=== PATIENT | male | born 1960 | race Caucasian/White ===

== ENCOUNTER 2020-02-23 13:36 | Inpatient (IN) | payer OTHER, SELFPAY ==
--- NOTE | ~2020-02-23 | XR_ITS ---
EXAMINATION: XR chest 1V portable DATE: 02/25/2020 12:18 INDICATION: Tachypnea. TECHNIQUE: A single frontal view of the chest was obtained. COMPARISON: CT abdomen and pelvis 06/06/2010 FINDINGS: There is mild atelectasis at left lung base. There is a prominent left paracardial fat pad. No pleural effusion or pneumothorax. The heart size is normal. IMPRESSION: 1. Mild atelectasis at left lung base. Reviewed, dictated and finalized at location A.
--- NOTE | ~2020-02-23 | US_ITS ---
EXAMINATION: US renal BI DATE: 02/25/2020 11:48 INDICATION: Acute kidney injury. TECHNIQUE: Multiple ultrasound grayscale images of the kidneys were obtained. COMPARISON: CT abdomen and pelvis 06/06/2010 FINDINGS: The right kidney measures 11.8 x 6.7 x 7.6 cm. The left kidney measures 13.2 x 6.9 x 8.8 cm. The kidn eys demonstrate normal parenchymal echogenicity. There is no hydronephrosis. The bladder is decompres sed by a [place] catheter. IMPRESSION: 1. Normal kidneys. No hydronephrosis. Reviewed, dictated and finalized at location A.
--- NOTE | ~2020-02-23 | CT_ITS ---
EXAMINATION: CT brain wo con INDICATION: Acute encephalopathy, confusion COMPARISON: None TECHNIQUE: Standard unenhanced head CT. The dose-length product (DLP) was 681.00 mGy-cm. The mA was a djusted according to patient size. Iterative reconstruction technique was employed. FINDINGS: Motion artifact slightly limits the examination. There is no intracranial hemorrhage, acute infarction, or abnormal mass lesion. The ventricles are normal. There is no abnormal mass effect or midline shift. The chavez-white matter differentiation is normal. The basal cisterns are patent. The or bits are normal. The paranasal sinuses, mastoids and calvarium are normal. IMPRESSION: 1. No acute intracranial abnormality. Reviewed, dictated and finalized at location A.
[2020-02-23 13:39] VITALS: BP 159/124; PULSE 99; RESP 22; TEMP 36.4; O2SAT 99
[2020-02-23 13:56] LABS: Glucose Point of Care > 500 (65-105)
--- NOTE | 2020-02-23 14:04 | PC.NURSE ---
patient uncooperative with assessment and attempts to obtain finger stick and past medical history. patient refused to allow any nursing interventions or provide information until he got a drink of water and was allowed to take a dump
[2020-02-23 14:06] VITALS: BP 142/78; PULSE 78; RESP 18; O2SAT 99
[2020-02-23] MEDS: SODIUM CHLORIDE 0.9% IV 1,000 ML 999 ML IV CONT ×2 (14:16→19:35)
[2020-02-23] MEDS: INSULIN HUMAN REGULAR (*BKC) 100 UNITS/ML 11 UNITS IV PUSH ×2 (14:17→16:32)
[2020-02-23 14:23] LABS: Basophils Absolute Auto 0.1 K/mm3 (0.0-0.1); Basophils Percent Auto 0.4 % (0.2-1.2); Hemoglobin 15.2 g/dL (14.0-18.0); Immature Granulocyte Absolute 0.49 K/mm3 (0.00-0.031); Immature Granulocyte Percent A 2.1 % (0-0.5); Lymphocytes Absolute Auto 1.25 K/mm3 (0.9-3.2); Lymphocytes Percent Auto 5.2 % (18.3-44.2); Mean Corpuscular HGB Conc 32.3 g/dl (32-36); Mean Corpuscular Hemoglobin 31.1 pg (26-34); Mean Corpuscular Volume 96.3 fl (80-100); Mean Platelet Volume 10.9 fl (7.4-10.4); Monocytes Absolute Auto 1.8 K/mm3 (0.1-0.6); Monocytes Percent Auto 7.6 % (2.6-8.5); Neutrophils Absolute Auto 20.2 K/mm3 (1.3-6.7); Neutrophils Percent Auto 84.7 % (45.5-73.1); Platelet Count Result 412 k/mm3 (150-375); Red Blood Count 4.88 M/mm3 (4.6-6.20); Red Cell Distribution Width 12.5 % (11.5-14.5); White Blood Count 23.9 K/mm3 (4.5-10.0)
[2020-02-23 14:39] LABS: Alanine Aminotransferase 22 U/L (4-50); Albumin Level 4.2 g/dL (3.5-5.1); Alkaline Phosphatase 118 U/L (38-126); Aspartate Amino Transferase 22 U/L (17-59); Bilirubin,Total 0.6 mg/dL (0.2-1.3); Blood Urea Nitrogen 53 mg/dL (9-20); Calcium 9.2 mg/dL (8.4-10.2); Carbon Dioxide < 5 mmol/L (22-30); Chloride 88 mmol/L (98-107); Estimated CRCL calculation 43 ml/min; Estimated Glomerular Filt Rate 34; Magnesium 2.6 mg/dL (1.6-2.3); Phosphorus 7.4 mg/dL (2.5-4.5); Potassium 5.4 mmol/L (3.4-5.0); Sodium 125 mmol/L (137-145)
[2020-02-23 14:41] LABS: Glucose Point of Care > 500 (65-105)
[2020-02-23 14:49] LABS: Glucose 863 mg/dL (75-110)
--- NOTE | 2020-02-23 15:02 | ECG_ITS ---
Measurements Intervals [place] Rate: 96 P: 87 [place]: 133 QRS: 70 QRSD: 90 T: 69 QT: 368 QTc: 467 Interpretive Statements SINUS RHYTHM ATRIAL PREMATURE COMPLEXES BASELINE WANDER- I, II, AVR, AVL, AVF, V1, V3-V6 BORDERLINE ECG Electronically Signed On 02-23-2020 18:11:09 CDT by Jackson Marcelo D.O.
[2020-02-23 15:24] LABS: Glucose Point of Care > 500 (65-105)
[2020-02-23 15:47] LABS: Lactic Acid 1.6 mmol/L (0.7-2.1)
[2020-02-23] MEDS: MORPHINE SULFATE 4 MG/ML INJ IV PUSH (15:49)
[2020-02-23 15:53] LABS: Hemoglobin A1C > 14.0 % (<5.7)
[2020-02-23 15:53] LABS: Add Urine Microscopic? YES; Appearance Urine Clear (Clear); Bilirubin Urine Negative (Negative); Blood Urine 2+ (Negative); Color Urine Straw (Yellow); Glucose Urine UA 3+ mg/dL (Negative); Ketones Urine 2+ mg/dL (Negative); Leukocyte Esterase Ur Negative LEU/UL (Negative); Mucus Urine Rare /lpf; Nitrate Urine Negative (Negative); Protein Urine 1+ mg/dL (Negative); RBC Urine 0-2 /hpf (0-2); Specific Grav Ur 1.024 (1.001-1.035); Urobilinogen Urine Negative mg/dL (<2.0); WBC Urine 0-3 /hpf
[2020-02-23 16:00] LABS: NT Pro B Type Natriuretic Pept 390 PG/ML (5-100); Troponin I 0.015 ng/mL (0.000-0.034)
--- NOTE | 2020-02-23 16:00 | ED.RECABL ---
HPI - Recheck/Abnormal Lab/Rx General Chief Complaint: Recheck/Abnormal Lab/Rx Stated Complaint: DKA Time Seen by Provider: 02/23/20 14:06 History of Present Illness HPI narrative: Patient presents with his for 4 weeks of extreme thirst and urination, and now vomiting. He was previously not diabetic. He has had a sore on his left buttock, that drained and is now scabbed. He has not had fever cough chills or sweats. He is having dry heaves and his is answering most of the questions. Related Data Allergies Allergy/AdvReac Type Severity Reaction Status Date / Time codeine Allergy Unknown Verified 07/18/17 12:59 Review of Systems Review of Systems: Narrative: CONSTITUTIONAL: Denies fever, chills, or sweats. EYES: Denies visual changes, redness, or discharge. ENT: Denies rhinorrhea, congestion, sore throat, or otalgia. CARDIOVASCULAR: Denies chest pain, palpitations, or edema. RESPIRATORY: Denies cough or dyspnea. GASTROINTESTINAL: Denies abdominal pain, nausea, vomiting, or diarrhea. Excess thirst GENITOURINARY: Denies dysuria or hematuria. Excess urination SKIN: Denies rash or itching. Abscess on the buttock MUSCULOSKELETAL: Denies back pain, joint pain, or myalgia. NEUROLOGIC: Denies headache, numbness, or weakness. PSYCHIATRIC: Denies anxiety or depression. All systems reviewed & are unremarkable except as noted in HPI and below PMFSH Past Medical History Medical History (Updated 02/23/20 @ 16:17 by Dorothea Quesada MD) Acute dehydration Acute hyponatremia Acute renal insufficiency Cellulitis and abscess of buttock DKA (diabetic ketoacidoses) Hyperkalemia Leukocytosis Newly diagnosed diabetes Thrombocytopenia Family History Family History Grandparent Family history of condition Mother Family history of malignant neoplasm of breast in first degree relative Father Family history of lung disease Family history of Alzheimer's disease Sibling Family history of rheumatoid arthritis Social History Social History Smoking status: Never smoker Alcohol intake: never Exam Narrative: Exam Narrative: GENERAL: Overweight sitting at the end of the bed with dry heaves. Unkempt. HEAD: Normocephalic, atraumatic. EYES: PERRLA and EOMI. ENT: Nares clear, no rhinorrhea or epistaxis. Mucous membranes moist. NECK: Supple. CHEST: Clear to auscultation. No respiratory distress. HEART: Regular rate and rhythm. No murmur heard. Normal peripheral pulses. ABDOMEN: Soft, nontender, nondistended, normal active bowel sounds. EXTREMITIES: Normal range of motion. No edema. SKIN: Warm, dry, no rash. Scab on the left buttock with surrounding erythema, not fluctuant. NEURO: No focal deficits. Alert and oriented x3. PSYCH: Flat affect few words. Course Consultations Consultation #1: Call the ICU and the hospitalist for admission for DKA. Dr. Goyal excepts to the ICU. And Naya accepts for Dr. Fitzgerald. Date: 02/23/20 Time: 16:04 Vital Signs Vital signs: Vital Signs Temperature 97.6 F 02/23/20 13:39 Pulse Rate 99 02/23/20 13:39 Respiratory Rate 22 H 02/23/20 13:39 Blood Pressure 159/124 H 02/23/20 13:39 Pulse Oximetry 99 02/23/20 13:39 Temperature 97.6 F 02/23/20 13:39 Pulse Rate 99 02/23/20 13:39 Respiratory Rate 22 H 02/23/20 13:39 Blood Pressure 159/124 H 02/23/20 13:39 Pulse Oximetry 99 02/23/20 13:39 MDM - Recheck/Abnormal Lab/Rx MDM Narrative Medical decision making narrative: Patient was thought to be in DKA when he arrived, and the labs support this. He was started on IV fluids and insulin. When his told us about the sore on his buttock, antibiotics were added. Medical Records Attestation: I reviewed the patient's medical records. Lab Data Attestation: I reviewed the patient's lab results. Result diagrams: 02/23/20 14:15 02/23/20 14:16
[2020-02-23 16:25] LABS: Glucose Point of Care > 500 (65-105)
[2020-02-23] MEDS: INSULIN HUMAN REGULAR (*BKC) 100 UNITS in SODIUM CHLORIDE 0.9% IV 99 ML 16.1 UNITS IV CONT (16:30)
--- NOTE | 2020-02-23 16:59 | PC.NURSE ---
patient continues to be uncooperative with mask usage and staying in bed. refuses straight cath to obtain ua and refuses to use urinial
[2020-02-23 17:29] LABS: Glucose Point of Care > 500 (65-105)
--- NOTE | 2020-02-23 18:21 | PC.NURSE ---
This patient, Osito Garcia, was admitted to Intensive Care Unit-12. Patient/family oriented to hospital policies and general routines including ID bracelet, bed and alarms, visiting hours, pain management, procedures, bathroom and other care routines, personal items, smoking policy, room service/diet, and visiting hours. Valuables list has been completed. Information on how to activate the Rapid Response Team has been discussed. Patient/Family are encouraged to report perceived risks to care and to ask questions if they do not understand what they are told or what they should do.
[2020-02-23 18:27] VITALS: BMI 36.1
[2020-02-23 18:35] LABS: Glucose 628 mg/dL (75-110)
[2020-02-23 19:09] LABS: Troponin I 0.018 ng/mL (0.000-0.034)
--- NOTE | 2020-02-23 19:28 | WPDPROCEDUR ---
Procedures Central Line Placement Right Femoral: Central Line Date: 02/23/20 Central Line Time: 19:10 Discussed w/ the patient/family/POA,the placement of a central venous catheter, including its clinical necessity/indication & associated potential risks, benifits and alternatives.: Yes The patient/family/POA understand(s) and acknowledge(s) the need to proceed with central venous catheter insertion as an important element of the patient's clinical management.: Yes Consent: Per patient Time Out Performed: Yes Patient Position: supine Patient placed on monitor/pulse ox: Yes Provider Prep: mask, sterile gown, sterile gloves, Max. sterile barrier precautions, cap and hand hygiene Central line prep: Povidone-Iodine 1% Local anesthesia used: lidocaine 1% Ultrasound used for placement: Yes Central line lumen inserted: triple British: 7 Length (cm): 16 Depth of Insertion (cm): 15 Post procedure: sutured in place, good blood return (All 3 port), all ports aspirated, flushed, capped, tegaderm and antimicrobial disc Post procedure x-ray: other (No x-ray needed as it is a femoral line) Complications: none
[2020-02-23] MEDS: SODIUM CHLORIDE 0.9% IV 1,000 ML 150 ML IV CONT (19:30)
--- NOTE | 2020-02-23 19:33 | PM.IMHP ---
H&P: HPI History of Present Illness Chief complaint: DKA Narrative: Osito Garcia is a 59 year old male has no previous history of having any diabetes. The patient stated he has been sick for about the last month. The patient has an area on his left inner thigh that is necrotic and the patient was unsure how long that had been there. He said he wishes to short period of time. Was not able to tell me if he took any medicine for that abscess to the left thigh. Patient also had a sore on his left buttocks that drained and is now scabbed. But I did not see that today. He denies fever or chills. He has had increased urination and increased thirst for at least the last month. White blood count 23.9. Sodium 125. BUN 53 creatinine 2.0. Glucose 863 and then 628. A1c is greater than 14. Troponins are negative. Anion gap of 32. Patient was started on a DKA protocol. Date of service 02/23/2020 Review of Systems Review of Systems: All systems reviewed & are unremarkable except as noted in HPI and below Constitutional: Constitutional: Reports as per HPI and Reports no additional constitutional complaints Eyes: Eyes: Reports as per HPI and Reports no additional eye complaints ENT: Reports system reviewed and no additional complaints, except as documented and Reports Normal hearing present Cardiovascular: Cardiovascular: Reports no additional cardiovascular complaints Respiratory: Respiratory: Reports no additional respiratory complaints and Reports no additional respiratory complaints Gastrointestinal: Gastrointestinal: Reports as per HPI and Reports no additional gastrointestinal complaints Musculoskeletal: Musculoskeletal: Reports no additional musculoskeletal complaints Integumentary/Breasts: Skin/Breast: Reports system reviewed and no additional complaints, except as docu and Reports as per HPI Neurologic: Reports system reviewed and no additional complaints, except as documented, Reports as per HPI and Reports Normal hearing present Psychiatric: Psychiatric: Reports no additional psychiatric complaints and Reports as per HPI Endocrine: Endocrine: Reports no additional endocrine complaints Hematologic/Lymphatic: Hematologic/Lymphatic: Reports no additional hematologic/lymphatic complaints Allergic/Immunologic: Allergic/Immunologic: Reports no additional allergic/immunologic complaints [facility] Past Medical History Medical History (Updated 02/23/20 @ 19:42 by Naya Garcia NP) Acute dehydration Acute hyponatremia Acute renal insufficiency Cellulitis and abscess of buttock Left inner thigh DKA (diabetic ketoacidoses) Hernia Not sure if repaired or not. Hyperkalemia Leukocytosis Newly diagnosed diabetes Thrombocytopenia Surgical History Surgical History (Updated 02/23/20 @ 19:43 by Naya Garcia NP) Surgical history unknown Family History Family History Grandparent Family history of condition Mother Family history of malignant neoplasm of breast in first degree relative Father Family history of lung disease Family history of Alzheimer's disease Sibling Family history of rheumatoid arthritis Social History Social History (Updated 02/23/20 @ 19:44 by Naya Garcia NP) Social History: Patient stated that he works at [employer] usually but is close were [employer]. 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 He has 2 children. His Scarlett is his durable power finance attorney for healthcare. The patient states that he is a full code. He states that he smokes marijuana on a daily basis. Denies any alcohol or tobacco use. No street drugs, Just marijuana. Smoking status: Never smoker Alcohol intake: former Substance use: current Substance use type: marijuana Living arrangements: with family Occupation/Education: occupation Gender identity (if verbalized by the patient): Male Spiritual care concerns: No Meds Home Medication
[2020-02-23 19:50] LABS: Blood Urea Nitrogen 50 mg/dL (9-20); Calcium 9.9 mg/dL (8.4-10.2); Carbon Dioxide < 5 mmol/L (22-30); Chloride 96 mmol/L (98-107); Estimated CRCL calculation 51 ml/min; Estimated Glomerular Filt Rate 41; Potassium 5.1 mmol/L (3.4-5.0); Sodium 131 mmol/L (137-145)
[2020-02-23 19:57] LABS: Glucose 717 mg/dL (75-110)
[2020-02-23 20:00] VITALS: BP 144/97; PULSE 97; RESP 22; TEMP 36.4; O2SAT 98
[2020-02-23 21:04] LABS: Glucose Point of Care > 500 (65-105)
[2020-02-23] MEDS: LORAZEPAM INJ 2 MG/ML VIAL 0.5 MG IV PUSH (21:21)
[2020-02-23 21:32] LABS: Glucose 422 mg/dL (75-110)
[2020-02-23 22:00] VITALS: BP 100/67; PULSE 105; RESP 22; O2SAT 98
[2020-02-23] MEDS: HYOSCYAMINE SULFATE 0.125 MG TABLET PO (22:45)
[2020-02-23] MEDS: HALOPERIDOL LACTATE 5 MG/ML VIAL IM (23:00)
[2020-02-23] MEDS: LORAZEPAM INJ 2 MG/ML VIAL IM (23:52)
[2020-02-23] MEDS: OLANZapine 10 MG INJ VIAL IM (23:53)
[2020-02-24] VITALS (12 sets, daily range): BP systolic 82–144; BP diastolic 46–106; PULSE 63–112; RESP 16–30; TEMP 36.4–37.2; O2SAT 93–100
--- NOTE | 2020-02-24 01:00 | WPDPROCEDUR ---
Procedures Central Line Placement Right Femoral: Central Line Date: 02/24/20 Central Line Time: 01:01 The patient/family/POA understand(s) and acknowledge(s) the need to proceed with central venous catheter insertion as an important element of the patient's clinical management.: Yes Time Out Performed: Yes Patient Position: supine Patient placed on monitor/pulse ox: Yes Provider Prep: mask, sterile gown, sterile gloves, Max. sterile barrier precautions, cap, hand hygiene and emergent ? sterile barriers not used Central line prep: Povidone-Iodine 1% Ultrasound used for placement: Yes Central line lumen inserted: triple Kyrgyz: 7 Length (cm): 20 Depth of Insertion (cm): 20 Post procedure: sutured in place, good blood return, all ports aspirated, flushed, capped, tegaderm and aseptic technique maintained throughout procedure Patient tolerated procedure: well and no complications Complications: none Additional comments: Date of service was 02/24/2020 at 00:30 hrs.
[2020-02-24 01:05] LABS: Glucose Point of Care 325 (65-105)
[2020-02-24 01:05] LABS: Glucose Point of Care 477 (65-105)
[2020-02-24 01:29] LABS: Blood Urea Nitrogen 40 mg/dL (9-20); Calcium 8.7 mg/dL (8.4-10.2); Carbon Dioxide 12 mmol/L (22-30); Chloride 103 mmol/L (98-107); Estimated CRCL calculation 66 ml/min; Estimated Glomerular Filt Rate 56; Glucose 336 mg/dL (75-110); Potassium 4.2 mmol/L (3.4-5.0); Sodium 131 mmol/L (137-145)
[2020-02-24] MEDS: INSULIN HUMAN REGULAR (*BKC) 100 UNITS in SODIUM CHLORIDE 0.9% IV 99 ML 18.2 UNITS IV CONT (02:12)
[2020-02-24 02:18] LABS: Glucose Point of Care 362 (65-105)
[2020-02-24] MEDS: KCL 20 MEQ/D5/0.45% SOD CHL 1,000 ML 150 ML IV CONT ×2 (04:34→14:45)
--- NOTE | 2020-02-24 04:52 | PC.NURSE ---
at 2054 patient calling out stating he has to pee . Explained about urinary catheter. Pateint requesting to get up to bathroom. Again explained about catheter and femoral centeral line and patient not to get up out of bed. [place] Rio balloon deflated, catheter repositioned and balloon reinflated. Patient continues to complain about needing to pee . 2119 Ativan 0.5 mg given IVP for agitation. 2199 patient attempting to limb out of bed. RN remains at bedside to remind patient to stay in bed. at 2229 patient pulled right femoral central out. Pressure held to site x 5 minutes. Charge nurse and Naya Garcia NP notified of lost IV access. Patient continues to be restless, demanding to get out of bed to pee or get water. 0 Haldol 5 mg IM given for agitation. Patient continues to escalate agitation, climbing out of bed, swinging at staff with fists and attempting to kick staff while trying to climb out f bed. 2340 Dr. Ferguson at bedside to exam patient. 235 Ativan 2 mg given IM. 2353 Zyprexa 10 mg given IM for agitation. Instructed to call Dr. Ferguson when patient calm enough for central line insertion. 0100 Right femoral central line placed by Dr. Ferguson. Patient is now sedated, sleeping, arouses to name and shaking. 0500 Patient remains sedate, arouses to voice. No further attempts to climb out of bed or strike out at staff. Sitter remains at beside.
[2020-02-24 05:19] LABS: Glucose Point of Care 299 (65-105)
[2020-02-24 05:19] LABS: Glucose Point of Care 216 (65-105)
[2020-02-24 05:44] LABS: Basophils Absolute Auto 0.1 K/mm3 (0.0-0.1); Basophils Percent Auto 0.5 % (0.2-1.2); Eosinophils Percent Auto 0.4 % (0-4.4); Hematocrit 41.1 % (42.0-52.0); Hemoglobin 14.1 g/dL (14.0-18.0); Immature Granulocyte Absolute 0.03 K/mm3 (0.00-0.031); Immature Granulocyte Percent A 0.3 % (0-0.5); Lymphocytes Absolute Auto 0.69 K/mm3 (0.9-3.2); Lymphocytes Percent Auto 6.7 % (18.3-44.2); Mean Corpuscular HGB Conc 34.3 g/dl (32-36); Mean Corpuscular Hemoglobin 31.5 pg (26-34); Mean Corpuscular Volume 91.7 fl (80-100); Mean Platelet Volume 10.6 fl (7.4-10.4); Monocytes Absolute Auto 0.9 K/mm3 (0.1-0.6); Neutrophils Absolute Auto 8.5 K/mm3 (1.3-6.7); Neutrophils Percent Auto 83.1 % (45.5-73.1); Platelet Count Result 295 k/mm3 (150-375); Red Blood Count 4.48 M/mm3 (4.6-6.20); Red Cell Distribution Width 12.3 % (11.5-14.5); White Blood Count 10.3 K/mm3 (4.5-10.0)
[2020-02-24 05:55] LABS: Blood Urea Nitrogen 42 mg/dL (9-20); Calcium 8.6 mg/dL (8.4-10.2); Carbon Dioxide 14 mmol/L (22-30); Chloride 107 mmol/L (98-107); Estimated CRCL calculation 67 ml/min; Estimated Glomerular Filt Rate 56; Glucose 200 mg/dL (75-110); Potassium 4.2 mmol/L (3.4-5.0); Sodium 134 mmol/L (137-145)
[2020-02-24 06:05] LABS: Magnesium 2.4 mg/dL (1.6-2.3)
[2020-02-24 06:06] LABS: Glucose Point of Care 175 (65-105)
--- NOTE | 2020-02-24 06:30 | PC.NURSE ---
Patient woke up yelling I need to pee and attemmpting to crawl out of bed. Dr. Ferguson notified of increased agitation and orders recieved.
[2020-02-24 07:59] LABS: Blood Urea Nitrogen 41 mg/dL (9-20); Calcium 8.3 mg/dL (8.4-10.2); Carbon Dioxide 18 mmol/L (22-30); Chloride 108 mmol/L (98-107); Estimated CRCL calculation 67 ml/min; Estimated Glomerular Filt Rate 56; Glucose 230 mg/dL (75-110); Potassium 4.9 mmol/L (3.4-5.0); Sodium 134 mmol/L (137-145)
[2020-02-24] MEDS: SODIUM CHLORIDE 0.9% IV 500 ML IV CONT ×2 (08:25→10:35)
--- NOTE | 2020-02-24 08:47 | WPDCNINT ---
Assessment and Plan Assessment and plan (1) Encephalopathy: Code(s): G93.40 - Encephalopathy, unspecified Status: Acute Assessment and Plan: patient has been encephalopathic since last evening, requiring Zyprexa, Haldol and no placed on Precedex infusion for being agitated, confused, pulling at lines and leads. He did pull out his central line, so 2nd central line was inserted due to venous insufficiency. Patient is currently in soft restraints - will obtain head CT - continue Precedex infusion - encephalopathy could be related infection, metabolic, CVA (2) DKA (diabetic ketoacidoses): Qualifiers: Diabetes mellitus complication detail: without coma Diabetes mellitus type: type 1 Qualified Code(s): E10.10 - Type 1 diabetes mellitus with ketoacidosis without coma Code(s): E11.10 - Type 2 diabetes mellitus with ketoacidosis without coma Status: Acute Assessment and Plan: patient with diabetic ketoacidosis, new onset diabetes, patient presented with polyuria, polydipsia with increased thirst, nausea vomiting. - Patient was given 3 L IV fluid bolus, placed on insulin infusion per DKA protocol - HbA1c is > 14 - will consult clinical systems educator and nutrition - once patient's anion gap closes will transition to low acting insulin and sliding scale insulin. (3) Acute renal insufficiency: Code(s): N28.9 - Disorder of kidney and ureter, unspecified Status: Acute Assessment and Plan: Acute kidney injury with elevated creatinine of 2.0 on admission, patient was given adequate amounts of IV fluids - creatinine this morning is 1.30. Urine output has been adequate - continue to monitor renal function, electrolytes and urine output - patient looks try, will give additional IV fluid bolus this morning (4) Hyperkalemia: Code(s): E87.5 - Hyperkalemia Status: Acute Assessment and Plan: hyperkalemia on admission likely related to metabolic acidosis - resolved (5) Acute hyponatremia: Code(s): E87.1 - Hypo-osmolality and hyponatremia Status: Acute Assessment and Plan: acute hyponatremia likely related to hyperglycemia. this is likely pseudohyponatremia of elevated sugars - sodium levels much improved (6) Cellulitis and abscess of buttock: Code(s): L02.31 - Cutaneous abscess of buttock; L03.317 - Cellulitis of buttock Status: Acute Assessment and Plan: cellulitis and abscess of the left posterior thigh, surgery has been consulted - blood cultures have been sent - patient was started on vancomycin and imipenem, will deescalate if blood cultures are negative (7) DVT prophylaxis: Code(s): Z29.9 - Encounter for prophylactic measures, unspecified Status: Acute Assessment and Plan: SCDs, if head CT is negative will start chemoprophylaxis (8) Dietary counseling and surveillance: Code(s): Z71.3 - Dietary counseling and surveillance Status: Acute Assessment and Plan: NPO for now patient on insulin infusion Additional Plan will discuss with family code status: Full code Critical care time spent: 41 minutes Due to a high probability of clinically significant, life threatening deterioration, the patient required my highest level of preparedness to intervene emergently and I personally spent this critical care time directly and personally managing the patient. This critical care time included obtaining a history; examining the patient; pulse oximetry; ordering and review of studies; arranging urgent treatment with development of a management plan; evaluation of patient's response to treatment; frequent reassessment; and discussions with other providers. It was exclusive of separately billable procedures and treating other patients and teaching time. Please see Assessment and Plan section and the rest of the note for further information on patient assessment and arsenio
[2020-02-24 08:56] LABS: Free T4 Free Thyroxine Reflex 0.53 ng/dL (0.78-2.19)
[2020-02-24 09:47] LABS: Glucose Point of Care 207 (65-105)
[2020-02-24 09:47] LABS: Glucose Point of Care 168 (65-105)
[2020-02-24] MEDS: MIDAZOLAM HCL 2 MG/2 ML VIAL IV PUSH (10:34)
[2020-02-24] MEDS: INSULIN HUMAN REGULAR (*BKC) 100 UNITS in SODIUM CHLORIDE 0.9% IV 99 ML 11 UNITS IV CONT (11:59)
[2020-02-24] MEDS: TOLNAFTATE 1% POWDER 45 GM BTL 1 APPLIC TOPICAL ×2 (12:01→20:13)
[2020-02-24 12:18] LABS: Blood Urea Nitrogen 39 mg/dL (9-20); Calcium 7.8 mg/dL (8.4-10.2); Carbon Dioxide 16 mmol/L (22-30); Chloride 109 mmol/L (98-107); Estimated CRCL calculation 63 ml/min; Estimated Glomerular Filt Rate 52; Glucose 206 mg/dL (75-110); Potassium 4.3 mmol/L (3.4-5.0); Sodium 134 mmol/L (137-145)
[2020-02-24 12:30] LABS: Glucose Point of Care 198 (65-105)
--- NOTE | 2020-02-24 13:05 | PM.CNGS ---
Assessment and Plan Assessment and plan (1) Wound of left lower extremity: Qualifiers: Encounter type: initial encounter Qualified Code(s): S81.802A - Unspecified open wound, left lower leg, initial encounter Code(s): S81.802A - Unspecified open wound, left lower leg, initial encounter Status: Acute Assessment and Plan: The patient has an unstageable necrotic wound to the left inner upper thigh with minimal surrounding cellulitis. There is an area of dry eschar with minimal brown drainage, but no obvious purulent pockets. This wound would likely benefit from excisional debridement to remove the necrotic tissue. With the patient being on sedation, this may be possible at the bedside. If his confusion and agitation continues, then this may need to be done in the OR. Continue IV antibiotics. We will initiate local wound care and attempt bedside debridement if possible in the next 1-2 days. I spoke with the patient's and discussed the treatment plan at this point. Description of the procedure, risks, benefits, indications, and expected outcomes were discussed with her in detail and all questions were answered. She gave verbal consent to proceed. Thank you for allowing me to see the patient in consultation and we will continue to follow along with you. (2) Newly diagnosed diabetes: Code(s): E11.9 - Type 2 diabetes mellitus without complications Status: Acute Assessment and Plan: HgbA1C greater than 14. Blood glucose down to 200's on the insulin drip. Management per Hospitalist/Wet Milling Wheel Operator. (3) Encephalopathy: Code(s): G93.40 - Encephalopathy, unspecified Status: Acute Assessment and Plan: Currently on Precedex drip. CT head today negative for acute intracranial abnormality. Management per Hospitalist/Wet Milling Wheel Operator. (4) DKA (diabetic ketoacidoses): Qualifiers: Diabetes mellitus complication detail: without coma Diabetes mellitus type: type 1 Qualified Code(s): E10.10 - Type 1 diabetes mellitus with ketoacidosis without coma Code(s): E11.10 - Type 2 diabetes mellitus with ketoacidosis without coma Status: Acute Assessment and Plan: Management per the Wet Milling Wheel Operator. Currently on IV Insulin drip. Additional Plan The patient's case and plan of care discussed with Dr. Wiggins. We went back to the bedside to assess the wound together and the patient was more agitated than my initial exam. He would likely not tolerate a bedside procedure at this time, I will try to assess him again later to see if he is more calm and I could proceed with debridement. History of Present Illness Consult details Consult date: 02/24/20 Reason for consult: other (Left inner thigh abscess) Requesting physician: Berenice Goyal MD Narrative: This is a 59-year-old male who presented to the emergency department with complaints of nausea, vomiting, and about 3-4 weeks of increased urination and thirst. On my exam, the patient recently returned from a CT of the head and is on a Precedex drip sedated. He is unable to answer my questions or provide a history. His history is obtained from the electronic medical record and I also spoke with his , Scarlett, over the phone. Apparently, the patient had been feeling poorly for about 3-4 weeks with increased urination, thirst, and fatigue. His reports that he has not seen a physician in a long time. He has also been dealing with a sore on his left inner upper thigh that has apparently been present for about 1.5 weeks. His states he wouldn't let her look at the area, so she had not seen the appearance of it, but he was complaining of pain and told her it started out looking like a pimple. She states he was not taking any medications for this and had not had fever or chills prior to hospitalization. Once he developed nausea and vomiting, he was brought to the emergency department for further evaluation. Emergency workup revealed the
[2020-02-24 15:15] LABS: Glucose Point of Care 131 (65-105)
[2020-02-24 16:08] LABS: Chloride 109 mmol/L (98-107)
--- NOTE | 2020-02-24 16:08 | P.OP_ITS ---
Procedure Note - Detailed Date of procedure: 02/24/20 Pre-op diagnosis: DKA Unstageable left medial thigh ulcer with cellulitis Post-op diagnosis: same (Stage III left medial thigh ulcer with cellulitis) Procedure performed: Sharp excisional debridement of left medial thigh wound including skin and subcutaneous tissue, measuring 3 x 2 x 1 cm Description of procedure: The patient was placed in the supine position. After a surgical time out, confirming the patient and procedure, the patient was prepped with betadine and draped in the usual sterile fashion. The eschar was sharply debrided with a 15 blade scalpel. Debridement was carried down until I reached healthy viable appearing tissue. No purulent drainage was noted. I then continued sharp excisional deridement with a scalpel and scissors to remove any remaining necrotic tissue in the wound bed. The wound bed was inspected and there was no significant bleeding. No areas of tunneling or tracking. The wound was measured 3 x 2 x 1 cm. A sterile gauze dressing was applied. The patient tolerated the procedure well. Towards the end of the procedure, he started becoming restless but I was able to complete the procedure and we were able to dress the wound. Anesthesia: none Surgeon: MANDA Tellez Media/Instructional Designer: JUAN Wilkins Estimated blood loss (mL): 0 Drains: No Pathology: none sent Complications: No immediate complications Condition: stable Disposition: no change (Bedside procedure in ICU 12.) Findings: Excisional debridement was performed using a scalpel and scissors. The necrotic eschar was debrided that extended from the skin to the subcutaneous fat. Debridement was carried down to healthy appearing pink bleeding tissue. No purulent drainage noted. Minimal surrounding cellulitis. Applied a gauze dressing. Will place orders to initiate local wound care with silver gel and a Mepilex border.
[2020-02-24 16:21] LABS: Blood Urea Nitrogen 37 mg/dL (9-20); Calcium 8.2 mg/dL (8.4-10.2); Carbon Dioxide 21 mmol/L (22-30); Estimated CRCL calculation 67 ml/min; Estimated Glomerular Filt Rate 56; Glucose 102 mg/dL (75-110); Potassium 4.8 mmol/L (3.4-5.0); Sodium 135 mmol/L (137-145)
[2020-02-24 17:12] LABS: Glucose Point of Care 119 (65-105)
[2020-02-24 17:12] LABS: Glucose Point of Care 89 (65-105)
--- NOTE | 2020-02-24 17:20 | PM.IMPN ---
Progress Note: A&P Assessment and Plan (1) DKA (diabetic ketoacidoses): Qualifiers: Diabetes mellitus complication detail: without coma Diabetes mellitus type: type 1 Qualified Code(s): E10.10 - Type 1 diabetes mellitus with ketoacidosis without coma Code(s): E11.10 - Type 2 diabetes mellitus with ketoacidosis without coma Status: Acute Assessment and Plan: Patient found to be in DKA on admission. New diagnosis of diabetes this admission. DKA protocol started and patient moved to the ICU. Appreciate transformation analyst input. Anion gap is closed insulin drip as stopped. Patient has been transitioned to Levemir. Wean off Precedex as toelrated. Continue supportive care. (2) Cellulitis and abscess of buttock: Code(s): L02.31 - Cutaneous abscess of buttock; L03.317 - Cellulitis of buttock Status: Acute Assessment and Plan: Patient underwent I and D by General surgery earlier today. Blood cultures are pending. White count much improved today. Currently on vancomycin and Primaxin. Continue the same. (3) Encephalopathy: Code(s): G93.40 - Encephalopathy, unspecified Status: Acute Assessment and Plan: Patient currently sedated with Precedex. CT of the brain showing no acute findings. Wean Precedex as tolerated. May need therapy once he is off sedation. (4) Acute renal insufficiency: Code(s): N28.9 - Disorder of kidney and ureter, unspecified Status: Acute Assessment and Plan: Creatinine 2.0 on admission. [place] related to the dehydration and DKA. Creatinine has trended down to 1.3. Continue to monitor. (5) Newly diagnosed diabetes: Code(s): E11.9 - Type 2 diabetes mellitus without complications Status: Acute Assessment and Plan: A1c >14. Glucose better controlled. Currently on Levemir. Dietican consult and hospice educator. Contineu sliding scale protocol. Watch for lows. Continue hypoglycemia protocol. (6) Acute dehydration: Code(s): E86.0 - Dehydration Status: Acute Assessment and Plan: Related to the DKA. (7) DVT prophylaxis: Code(s): Z29.9 - Encounter for prophylactic measures, unspecified Status: Acute Assessment and Plan: Lovenox Subjective Date/time seen: 02/24/20 17:20 Interval history: 59yo male without known DM here for cellulitis and DKA. Assuming care. Chart reviewed. Patient agitated at times alternating with somnolence. Patient currently on Precedex 1 mcg per kg per hour. He responds to voice and opens eyes. He however is unable to provide an accurate history at this time. Patient has not eaten today. Exam Narrative: Exam Narrative: Gen - NARD lying semi recumbent in bed HEENT - NC/AT, pupils pinpoint. Chest -inspiratory rhonchi bibasilar right greater than left. CV - RRR S1/S2; telemetry showing no significant dysrhythmias occasional sinus tachycardia Abd -soft. Obese. Nontender. -[place] catheter secured draining clear yellow urine Ext - No pedal edema Neuro -somnolent but arouses. Patient's answers are nonsensical. Psych -difficult to assess Skin -left medial thigh wound not able to be visualized at this time. Objective Data Vital Signs Vital Signs: Vital Signs - 24 hr 02/23/20 20:00 02/23/20 22:00 02/24/20 00:00 Temperature 97.5 F L 97.9 F Pulse Rate 97 105 H 105 H Respiratory Rate 22 H 22 H 16 Blood Pressure 144/97 H 100/67 113/63 Pulse Oximetry 98 98 96 02/24/20 02:00 02/24/20 04:00 02/24/20 06:00 Temperature 98.9 F Pulse Rate 112 H 109 H 109 H Respiratory Rate 22 H 24 H 22 H Blood Pressure 113/73 101/69 121/63 Pulse Oximetry 93 95 96 02/24/20 08:00 02/24/20 10:00 02/24/20 12:00 Temperature 98 F 98.5 F Pulse Rate 108 H 102 H 91 Respiratory Rate 30 H 16 18 Blood Pressure 90/72 L 90/46 L 98/54 L Pulse Oximetry 98 94 100 02/24/20 14:00 02/24/20 16:00 Temperature 98.8 F Pulse Rate 88 6
[2020-02-24] MEDS: SILVERGEL (ELTA) 45 ML 1 APPLIC TOPICAL (17:38)
[2020-02-24] MEDS: DEXTROSE 5%/0.9% SOD CHL 1,000 ML 70 ML IV CONT (18:13)
[2020-02-24 18:18] LABS: Glucose Point of Care 178 (65-105)
[2020-02-24] MEDS: ENOXAPARIN 40 MG/0.4 ML SYRINGE SUB-Q (20:12)
[2020-02-24] MEDS: INSULIN DETEMIR 100 UNITS/ML 12 UNITS SUB-Q (21:09)
[2020-02-24] MEDS: SODIUM CHLORIDE 0.9% IV 500 ML 999 ML (23:27)
[2020-02-25] VITALS (11 sets, daily range): BP systolic 93–152; BP diastolic 58–98; PULSE 65–108; RESP 20–25; TEMP 36.3–37.6; O2SAT 94–100; BMI 36.9
[2020-02-25 00:13] LABS: Glucose Point of Care 389 (65-105)
[2020-02-25] MEDS: INSULIN ASPART (*BKC) 100 UNITS/ML SUB-Q ×4 (00:15→17:45)
[2020-02-25 04:46] LABS: Basophils Percent Auto 0.2 % (0.2-1.2); Eosinophils Absolute Auto 0.1 K/mm3 (0-0.3); Eosinophils Percent Auto 0.5 % (0-4.4); Hematocrit 32.8 % (42.0-52.0); Immature Granulocyte Absolute 0.08 K/mm3 (0.00-0.031); Immature Granulocyte Percent A 0.8 % (0-0.5); Lymphocytes Absolute Auto 1.15 K/mm3 (0.9-3.2); Lymphocytes Percent Auto 11.7 % (18.3-44.2); Mean Corpuscular HGB Conc 33.5 g/dl (32-36); Mean Corpuscular Hemoglobin 31.1 pg (26-34); Mean Corpuscular Volume 92.7 fl (80-100); Mean Platelet Volume 10.7 fl (7.4-10.4); Monocytes Absolute Auto 0.9 K/mm3 (0.1-0.6); Monocytes Percent Auto 8.9 % (2.6-8.5); Neutrophils Absolute Auto 7.6 K/mm3 (1.3-6.7); Neutrophils Percent Auto 77.9 % (45.5-73.1); Platelet Count Result 215 k/mm3 (150-375); Red Blood Count 3.54 M/mm3 (4.6-6.20); Red Cell Distribution Width 12.8 % (11.5-14.5); White Blood Count 9.8 K/mm3 (4.5-10.0)
[2020-02-25 04:57] LABS: Alanine Aminotransferase 18 U/L (4-50); Albumin Level 2.9 g/dL (3.5-5.1); Alkaline Phosphatase 61 U/L (38-126); Aspartate Amino Transferase 24 U/L (17-59); Bilirubin,Total 0.4 mg/dL (0.2-1.3); Blood Urea Nitrogen 40 mg/dL (9-20); Calcium 7.7 mg/dL (8.4-10.2); Carbon Dioxide 17 mmol/L (22-30); Chloride 108 mmol/L (98-107); Estimated CRCL calculation 67 ml/min; Estimated Glomerular Filt Rate 56; Glucose 378 mg/dL (75-110); Magnesium 2.6 mg/dL (1.6-2.3); Phosphorus 2.5 mg/dL (2.5-4.5); Potassium 4.6 mmol/L (3.4-5.0); Sodium 133 mmol/L (137-145)
[2020-02-25 05:12] LABS: CRP 18.4 mg/dL (<1.0)
[2020-02-25 08:12] LABS: Glucose Point of Care 317 (65-105)
--- NOTE | 2020-02-25 08:27 | PM.IMPN ---
Progress Note: A&P Assessment and Plan (1) DKA (diabetic ketoacidoses): Qualifiers: Diabetes mellitus complication detail: without coma Diabetes mellitus type: type 1 Qualified Code(s): E10.10 - Type 1 diabetes mellitus with ketoacidosis without coma Code(s): E11.10 - Type 2 diabetes mellitus with ketoacidosis without coma Status: Acute Assessment and Plan: Patient found to be in DKA on admission. New diagnosis of diabetes this admission. DKA protocol started and patient moved to the ICU. Appreciate dyer helper input. Anion gap closed and insulin drip as stopped. Patient has been transitioned to Levemir. Stared on dextrose yesterday due to glucose into the 80's and pateint NPO. Glucose 300's today and bicarb 17 but AG 8. Stop IVF. Levemir has been advanced. Wean off Precedex as tolerated. Continue supportive care. Repeat BMP later today. (2) Cellulitis and abscess of buttock: Code(s): L02.31 - Cutaneous abscess of buttock; L03.317 - Cellulitis of buttock Status: Acute Assessment and Plan: Patient underwent I and D by General surgery 02/24/20. Blood cultures NGTD. White count normal now. Currently on vancomycin and Primaxin. Continue the same. Will check CXR given physical findings. (3) Encephalopathy: Code(s): G93.40 - Encephalopathy, unspecified Status: Acute Assessment and Plan: Patient mildly sedated with Precedex. CT of the brain showing no acute findings. Able to wean Precedex to a point where he is more awake. May need therapy once he is off sedation and central line is out. (4) Acute renal insufficiency: Code(s): N28.9 - Disorder of kidney and ureter, unspecified Status: Acute Assessment and Plan: Creatinine 2.0 on admission. [place] related to the dehydration and DKA. Creatinine has trended down to 1.3 and stable. Continue to monitor. Will check renal US. (5) Newly diagnosed diabetes: Code(s): E11.9 - Type 2 diabetes mellitus without complications Status: Acute Assessment and Plan: A1c >14. Glucose better controlled yesterday. Started on Levemir and dose advanced. [employer] and hematology nurse educator consult. Continue sliding scale protocol. Continue hypoglycemia protocol. (6) Acute dehydration: Code(s): E86.0 - Dehydration Status: Acute Assessment and Plan: Related to the DKA. (7) DVT prophylaxis: Code(s): Z29.9 - Encounter for prophylactic measures, unspecified Status: Acute Assessment and Plan: Lovenox Subjective Date/time seen: 02/25/20 08:27 Interval history: 59yo male without known DM here for cellulitis and DKA. Patient was agitated at times requiring Precedex and now down to 0.8 mcg per kg per hour. He is awake now and calm. he is confused. He had a normal BM this morning. Slept well last night per staff. Patient denies CP, palpitations, nausea, Per , patient has been waking up confused but long standing but more agitated and 'short tempered' recently (past 3-4 weeks). Not feeling well past 3 weeks. He had a 40 pounds in the past 10 days. Does wake up 'violent' after anaesthesia. Patient denies CERVANTES, sore throat, chest pain, palpitations, nausea, vomiting or SOB. Has chronic cough that is dry. Patient has no appetite this morning. Exam Narrative: Exam Narrative: Gen - NARD lying semi recumbent in bed HEENT - NC/AT Chest -mild bibasilar inspiratory crackles. Normal respiratory rate. Currently on 2 L CV - RRR S1/S2; telemetry showing no significant dysrhythmias occasional PAC Abd -soft. Nontender. Nondistended. Positive bowel sounds. -[place] catheter secured draining clear yellow urine Ext - No pedal edema. 2+ PT pulses bilaterally. Right femoral TLC in place. Neuro -alert. Mildly confused and oriented times 2. He thought he was at the [facility] and did not know the name of the president.
[2020-02-25] MEDS: SILVERGEL (ELTA) 45 ML 1 APPLIC TOPICAL (08:58)
[2020-02-25] MEDS: INSULIN DETEMIR 100 UNITS/ML 20 UNITS SUB-Q ×2 (08:58→20:24)
[2020-02-25] MEDS: TOLNAFTATE 1% POWDER 45 GM BTL 1 APPLIC TOPICAL ×2 (08:58→20:31)
[2020-02-25 10:21] LABS: Glucose Point of Care 135 (65-105)
[2020-02-25 10:21] LABS: Glucose Point of Care 188 (65-105)
[2020-02-25 10:21] LABS: Glucose Point of Care 89 (65-105)
--- NOTE | 2020-02-25 11:28 | PM.PNGS ---
Progress Note: A&P Assessment and Plan (1) Wound of left lower extremity: Qualifiers: Encounter type: initial encounter Qualified Code(s): S81.802A - Unspecified open wound, left lower leg, initial encounter Code(s): S81.802A - Unspecified open wound, left lower leg, initial encounter Status: Acute Assessment and Plan: Wound looks good today with very minimal remaining necrotic tissue at the skin edges that will likely benefit from enzymatic debridement. Will switch local wound care to Santyl dressing changes once daily with a Mepilex border. No further plans for surgical intervention at this time. Will sign off at this point and follow only as needed. The patient can follow-up with me in the wound clinic 1 week after discharge. (2) Newly diagnosed diabetes: Code(s): E11.9 - Type 2 diabetes mellitus without complications Status: Acute Assessment and Plan: Discussed with him the importance of compliance and glycemic control once discharged. (3) Encephalopathy: Code(s): G93.40 - Encephalopathy, unspecified Status: Acute Assessment and Plan: Improved. (4) DKA (diabetic ketoacidoses): Qualifiers: Diabetes mellitus complication detail: without coma Diabetes mellitus type: type 1 Qualified Code(s): E10.10 - Type 1 diabetes mellitus with ketoacidosis without coma Code(s): E11.10 - Type 2 diabetes mellitus with ketoacidosis without coma Status: Acute Assessment and Plan: Management per the [facility]. No longer on insulin drip. Additional Plan Discussed plan of care with Dr. Wiggins today. Subjective Subjective Date/Time Seen: 02/25/20 11:00 Post Op day: 1 (Excisional debridement of left inner thigh wound) Patient reports: feels better Interval history: Patient seen and examined sitting up in the chair today. He is alert and oriented x3 but does not recall recent events. Patient denies any pain in his left inner thigh. I discussed with him the procedure that was performed at the bedside yesterday. No other complaints at this time. Review of Systems Review of Systems: All systems reviewed & are unremarkable except as noted in HPI and below Exam Const: General: comfortable and no acute distress Skin: Other: Left medial upper thigh with open wound that has very minimal remaining loose necrotic tissue at the edges of the wound that likely will benefit from enzymatic debridement. Base of the wound appears pink with some granulation tissue noted. No purulent drainage. Surrounding erythema and induration has improved today. Non-tender. Neuro: General: gait normal and no focal motor deficits Cognition (Neuro): normal cognition Speech: normal speech Extrem: General: normal to inspection and no edema Psych: Mental Status: mental status grossly normal Affect: normal affect Thought content: Yes Normal thought content present Insight: Good insight present (Psych) Judgement: Good judgement present (Psych) Objective Data Vital Signs Vital Signs: Vital Signs - 24 hr 02/24/20 12:00 02/24/20 14:00 02/24/20 16:00 Temperature 36.9 C 37.1 C Pulse Rate 91 88 67 Respiratory Rate 18 24 H 26 H Blood Pressure 98/54 L 85/53 L 144/106 H Pulse Oximetry 100 99 100 02/24/20 18:00 02/24/20 20:00 02/24/20 22:00 Temperature 36.4 C L Pulse Rate 63 66 66 Respiratory Rate 26 H 22 H 24 H Blood Pressure 82/53 L 91/56 L 85/51 L Pulse Oximetry 100 98 99 02/25/20 00:00 02/25/20 02:00 02/25/20 04:00 Temperature 37.5 C 37.1 C Pulse Rate 65 68 79 Respiratory Rate 22 H 22 H 24 H Blood Pressure 93/58 L 100/59 L 117/70 Pulse Oximetry 100 100 98 02/25/20 06:00 02/25/20 08:00 02/25/20 08:05 Temperature 36.3 C L Pulse Rate 96 100 108 H Respiratory Rate 24 H 25 H Blood Pressure 141/77 H 152/98 H Pulse Oximetry 96 95 02/25/20 10:00 Temperature Pulse Rate 98 Respiratory Rate 23 H Blood Pressure 116/80 Pulse Oximetry 9
[2020-02-25 11:43] LABS: Glucose Point of Care 352 (65-105)
[2020-02-25] MEDS: COLLAGENASE OINT 30 GM TUBE 1 APPLIC TOPICAL (12:04)
[2020-02-25 12:07] LABS: Blood Urea Nitrogen 30 mg/dL (9-20); Carbon Dioxide 15 mmol/L (22-30); Chloride 107 mmol/L (98-107); Estimated CRCL calculation 73 ml/min; Estimated Glomerular Filt Rate > 60; Glucose 363 mg/dL (75-110); Sodium 133 mmol/L (137-145)
--- NOTE | 2020-02-25 13:38 | WPDINTPN ---
Progress Note: A&P Assessment and Plan (1) Encephalopathy: Code(s): G93.40 - Encephalopathy, unspecified Status: Acute Assessment and Plan: RESOLVED: likely related to Ativan. - CT scan of the head did not show any acute intracranial abnormalities. - Patient off Precedex infusion - patient sitting up in the chair and having breakfast. , able to answer questions, follows simple commands and is oriented place and person (2) DKA (diabetic ketoacidoses): Qualifiers: Diabetes mellitus complication detail: without coma Diabetes mellitus type: type 1 Qualified Code(s): E10.10 - Type 1 diabetes mellitus with ketoacidosis without coma Code(s): E11.10 - Type 2 diabetes mellitus with ketoacidosis without coma Status: Acute Assessment and Plan: patient with diabetic ketoacidosis, new onset diabetes, patient presented with polyuria, polydipsia with increased thirst, nausea vomiting. - patient was adequately fluid-resuscitated - patient transition to long-acting insulin sliding scale insulin along with Accu-Cheks - started on diabetic diet - hemoglobin A1c > 14 (3) Acute renal insufficiency: Code(s): N28.9 - Disorder of kidney and ureter, unspecified Status: Acute Assessment and Plan: Acute kidney injury with elevated creatinine of 2.0 on admission, patient was given adequate amounts of IV fluids - creatinine this morning is 1.30. Urine output has been adequate - continue to monitor renal function, electrolytes and urine output - patient on diet (4) Hyperkalemia: Code(s): E87.5 - Hyperkalemia Status: Acute Assessment and Plan: hyperkalemia on admission likely related to metabolic acidosis - resolved (5) Acute hyponatremia: Code(s): E87.1 - Hypo-osmolality and hyponatremia Status: Acute Assessment and Plan: acute hyponatremia likely related to hyperglycemia. this is likely pseudohyponatremia of elevated sugars - sodium levels much improved (6) Cellulitis and abscess of buttock: Code(s): L02.31 - Cutaneous abscess of buttock; L03.317 - Cellulitis of buttock Status: Acute Assessment and Plan: status post incision and debridement of the medial thigh abscess with cellulitis - blood cultures negative x2 - continue vancomycin and imipenem, (7) DVT prophylaxis: Code(s): Z29.9 - Encounter for prophylactic measures, unspecified Status: Acute Assessment and Plan: SCDs, Lovenox (8) Dietary counseling and surveillance: Code(s): Z71.3 - Dietary counseling and surveillance Status: Acute Assessment and Plan: diabetic diet Additional Plan discussed with and updated her with patient's condition and plan of care. I also updated the patient code status: Full code Critical care time spent: 31 minutes Due to a high probability of clinically significant, life threatening deterioration, the patient required my highest level of preparedness to intervene emergently and I personally spent this critical care time directly and personally managing the patient. This critical care time included obtaining a history; examining the patient; pulse oximetry; ordering and review of studies; arranging urgent treatment with development of a management plan; evaluation of patient's response to treatment; frequent reassessment; and discussions with other providers. It was exclusive of separately billable procedures and treating other patients and teaching time. Please see Assessment and Plan section and the rest of the note for further information on patient assessment and treatment Subjective Date/time seen: 02/25/20 13:38 REASON FOR CONSULT: diabetic ketoacidosis, left inner thigh abscess with eschar, hyperkalemia, metabolic acidosis 03/13/2020: patient had a exertion debridement of stage III left medial thigh ulcer with cellulitis By surgery on
--- NOTE | 2020-02-25 13:40 | PC.NURSE ---
This patient, Osito Garcia, was transferred to [facility] on 02/25/20 at 1330. Personal belongings sent with patient. Belongings list checked and signed with receiving [ ]. Report given to JUAN Morley. Appropriate documentation sent with patient.
--- NOTE | 2020-02-25 13:42 | PC.NURSE ---
patient transferred here from ICU 12 in bed.
[2020-02-25 17:41] LABS: Glucose Point of Care 314 (65-105)
[2020-02-25] MEDS: ENOXAPARIN 40 MG/0.4 ML SYRINGE SUB-Q (20:24)
[2020-02-25 21:11] LABS: Glucose Point of Care 288 (65-105)
[2020-02-26 02:00] VITALS: BP 124/76; PULSE 96; RESP 22; TEMP 37.2; O2SAT 96
[2020-02-26 04:35] LABS: Basophils Absolute Auto 0.1 K/mm3 (0.0-0.1); Basophils Percent Auto 0.4 % (0.2-1.2); Eosinophils Percent Auto 0.3 % (0-4.4); Hematocrit 36.5 % (42.0-52.0); Hemoglobin 12.2 g/dL (14.0-18.0); Immature Granulocyte Absolute 0.09 K/mm3 (0.00-0.031); Immature Granulocyte Percent A 0.6 % (0-0.5); Lymphocytes Absolute Auto 1.48 K/mm3 (0.9-3.2); Lymphocytes Percent Auto 10.6 % (18.3-44.2); Mean Corpuscular HGB Conc 33.4 g/dl (32-36); Mean Corpuscular Hemoglobin 31.2 pg (26-34); Mean Corpuscular Volume 93.4 fl (80-100); Mean Platelet Volume 10.6 fl (7.4-10.4); Monocytes Percent Auto 6.8 % (2.6-8.5); Neutrophils Absolute Auto 11.4 K/mm3 (1.3-6.7); Neutrophils Percent Auto 81.3 % (45.5-73.1); Platelet Count Result 238 k/mm3 (150-375); Red Blood Count 3.91 M/mm3 (4.6-6.20); Red Cell Distribution Width 12.9 % (11.5-14.5)
[2020-02-26 04:53] LABS: Albumin Level 3.3 g/dL (3.5-5.1); Blood Urea Nitrogen 16 mg/dL (9-20); Calcium 8.3 mg/dL (8.4-10.2); Carbon Dioxide 20 mmol/L (22-30); Chloride 104 mmol/L (98-107); Estimated CRCL calculation 106 ml/min; Estimated Glomerular Filt Rate > 60; Glucose 262 mg/dL (75-110); Magnesium 2.5 mg/dL (1.6-2.3); Phosphorus 2.3 mg/dL (2.5-4.5); Potassium 3.5 mmol/L (3.4-5.0); Sodium 134 mmol/L (137-145)
[2020-02-26 06:00] VITALS: BP 128/70; PULSE 89; RESP 22; TEMP 36.9; O2SAT 97
[2020-02-26 08:00] VITALS: BP 150/96; PULSE 122; RESP 22; TEMP 36.2; O2SAT 96
[2020-02-26] MEDS: COLLAGENASE OINT 30 GM TUBE 1 APPLIC TOPICAL (09:49)
[2020-02-26] MEDS: TOLNAFTATE 1% POWDER 45 GM BTL 1 APPLIC TOPICAL (09:50)
[2020-02-26] MEDS: POTASSIUM/PHOSPHORUS/SODIUM 1.5 GM PACKET 1 PACKET PO (09:51)
[2020-02-26] MEDS: INSULIN DETEMIR 100 UNITS/ML 20 UNITS SUB-Q (09:58)
[2020-02-26] MEDS: INSULIN ASPART (*BKC) 100 UNITS/ML SUB-Q ×3 (09:59→18:24)
[2020-02-26] MEDS: NEOMYCIN/POLYMYXIN/BACITRACIN OINTMENT PACKET 1 PACKET (11:30)
[2020-02-26 12:00] VITALS: BP 135/73; PULSE 98; RESP 16; TEMP 36.8; O2SAT 95
[2020-02-26 12:47] LABS: Glucose Point of Care 305 (65-105)
[2020-02-26 12:55] LABS: Glucose Point of Care 293 (65-105)
[2020-02-26] MEDS: metroNIDAZOLE 250 MG TABLET PO ×2 (13:40→18:24)
--- NOTE | 2020-02-26 13:57 | PCDIET ---
Nutritional consult for uncontrolled DM. Attempted to educate pt twice today, first time was doing dressing change, second attempt not available. museum educator coming this afternoon per RN. Current diet appropriate. Pt is more alert today and patient is tolerating current diet with adequate intake. A1c over 14. We will f/u on Sunday to attempt [facility] edu. Patient instructions attached to d/c paperwork.
[2020-02-26 15:35] VITALS: BMI 35.7
[2020-02-26 16:00] VITALS: BP 135/73; PULSE 62; RESP 16; TEMP 37.6; O2SAT 96
--- NOTE | 2020-02-26 17:27 | PM.DS ---
DS: Diagnosis Admitting Diagnosis Admitting Diagnosis: Type 1 diabetes mellitus with ketoacidosis without coma Discharge Diagnosis (1) DKA (diabetic ketoacidoses): Qualifiers: Diabetes mellitus complication detail: without coma Diabetes mellitus type: type 1 Qualified Code(s): E10.10 - Type 1 diabetes mellitus with ketoacidosis without coma Code(s): E11.10 - Type 2 diabetes mellitus with ketoacidosis without coma Status: Acute Assessment and Plan: Patient found to be in DKA on admission. New diagnosis of diabetes this admission. DKA protocol started and patient moved to the ICU. [id number]/[id number] Tank Driver consulted. Anion gap closed and insulin drip was stopped. Patient was transitioned to Levemir. (2) Cellulitis and abscess of buttock: Code(s): L02.31 - Cutaneous abscess of buttock; L03.317 - Cellulitis of buttock Status: Acute Assessment and Plan: Patient underwent I and D by General surgery 02/24/20 of left inner thigh necrotic wound. Blood cultures NGTD. White count 23.9K on admission but normallized. WBC up to 14K at time of discharge but wound looks good and no other symptoms to suggest worsening disease. Was treated with vancomycin and Primaxin. Wound care discussed with patient (3) Encephalopathy: Code(s): G93.40 - Encephalopathy, unspecified Status: Acute Assessment and Plan: Patient markedly disoriented and agitated requiring sedation with Precedex. CT of the brain showing no acute findings. Able to wean Precedex to a point where he was more awake. He was able to remain calm and able to slowly wean off Precedex. Mental status remained normal after transfer from ICU. Section related to above. (4) Acute renal insufficiency: Code(s): N28.9 - Disorder of kidney and ureter, unspecified Status: Acute Assessment and Plan: Creatinine 2.0 on admission. Section related to the dehydration and DKA. Creatinine has trended down to 0.8. Renal US showed no acute findings. (5) Newly diagnosed diabetes: Code(s): E11.9 - Type 2 diabetes mellitus without complications Status: Acute Assessment and Plan: A1c >14. Glucose running mostly in the high 200's today. Levemir dose was advanced the day before so no adjustment made at discharge but metformin added. [employer] and unit educator consult and saw the patient. Side effects of metformin discussed. Did not send patient home with a sliding scale Novolog since he seemed reluctant even with the Levemir so trying to make the regiment as simple as possible. (6) Acute dehydration: Code(s): E86.0 - Dehydration Status: Acute Assessment and Plan: Related to the DKA. DS: Summary Hospital Course Reason for hospitalization: 59yo male here for DKA. Please see H&P for details. Hospital Course: As above Time Spent with Patient Time attestation: Total time spent providing and/or coordinating discharge services:35 minutes Time spent: Greater than 30 minutes Specific discharge activities: Patient education, discussed with diab educator Exam Narrative: Exam Narrative: Gen - NARD Chest -CTA bilaterally, nml RR CV - RRR S1/S2 Abd -soft. Nontender. Nondistended. Positive bowel sounds. Ext - No pedal edema. Neuro -AOx4 Psych -calm and cooperative. Skin -left medial thigh wound approximately 2.5 x 1 cm with very minimal rim of black eschar and very minimal surrounding erythema; wound bed looks clean. DS: Data Data Completed and Pending Labs on day of discharge: Labs from last 24 hours 02/26/20 02/26/20 02/26/20 15:01 12:51 09:57 WBC RBC Hgb Hct MCV MCH MCHC RDW Plt Count MPV Immature Gran % (Auto) Neut % (Auto) Lymph % (Auto) [place] % (Auto) Eos % (Auto) Baso % (Auto) Lymph # (Auto) [place] # (Auto) Eos # (Auto) Baso # (Auto) Abs Immat Gran (auto) Absolute Neuts (aut
[2020-02-26 17:45] LABS: Glucose Point of Care 295 (65-105)
== END 2020-02-26 19:45 | disposition home or self-care (01) | DRG 622 ==
LOC: ANHED 16:18 → ANHICU 17:28 → ANH3MEDSUR 02-25 13:47
PROVIDERS: Internal Medicine; Nurse Practitioner; Admitting Provider Hospitalist; Emergency Provider Emergency Medicine; PCP Physician Assistant; Visit Provider Internal Medicine
DX: E11.10 Type 2 diabetes mellitus with ketoacidosis without coma (principal); G92 Toxic encephalopathy; L02.31 Cutaneous abscess of buttock; L03.317 Cellulitis of buttock; L97.129 Non-pressure chronic ulcer of left thigh with unspecified severity; E87.1 Hypo-osmolality and hyponatremia; N17.9 Acute kidney failure, unspecified; E87.2 Acidosis; T42.4X5A Adverse effect of benzodiazepines, initial encounter; E86.0 Dehydration; D72.829 Elevated white blood cell count, unspecified; E87.5 Hyperkalemia; Z96.643 Presence of artificial hip joint, bilateral
CPT/HCPCS: 36415; 70450; 71045; 76775; 80048; 80053; 80069; 80202; 81001; 82010; 82947; 82948; 83036; 83605; 83735; 83880; 84100; 84439; 84443; 84484; 85025; 86140; 87040; 93005; 96361; 96365; 96366; 96367; 96368; 96375; 96376; 99291; A9270; C1751; J0743; J1630; J1650; J1815; J2060; J2250; J2270; J2543; J3370; J3480; J7030; J7040; J7042

== ENCOUNTER 2020-12-17 16:48 | Outpatient (CLI) | payer OTHER, SELFPAY | END 2020-12-17 16:49 | disposition home or self-care (01) | LOC: ANHCOVIDVC 16:48 | PROVIDERS: PCP Physician Assistant | DX: Z23 Encounter for immunization (principal) | CPT/HCPCS: 0001A; 91300 ==

== ENCOUNTER 2021-01-07 16:48 | Outpatient (CLI) | payer OTHER, SELFPAY | END 2021-01-07 16:49 | disposition home or self-care (01) | LOC: ANHCOVIDVC 16:48 | PROVIDERS: PCP Physician Assistant | DX: Z23 Encounter for immunization (principal) | CPT/HCPCS: 0002A; 91300 ==

== ENCOUNTER 2021-04-04 14:01 | Observation (INO) | payer OTHER, SELFPAY ==
[2021-04-04] VITALS (16 sets, daily range): BP systolic 133–149; BP diastolic 79–92; PULSE 53–65; RESP 11–21; TEMP 36.2–36.6; O2SAT 90–100; BMI 30.7
--- NOTE | ~2021-04-04 | MR_ITS ---
EXAMINATION: MR IAC wo/w con DATE: 04/06/2021 13:32 INDICATION: Dizziness. TECHNIQUE: Magnetic resonance imaging (MRI) of the brain, brainstem, and internal auditory canals was performed without and with 18 mL MultiHance intravenous contrast. Sequences included small field-of- view coronal FIESTA, small ovzhz-iy-oeao coronal T1-weighted FSE, and small mkgqq-lj-uhhf axial T1-we ighted SPGR. Postcontrast sequences included small muxyg-mu-otds coronal T1-weighted FSE and small fi eld-of-view axial T1-weighted SPGR. COMPARISON: Brain MRI 04/05/2021 FINDINGS: There is no abnormal mass. The ventricles are normal in size. The internal auditory canals and inner and middle ears are normal. IMPRESSION: 1. No abnormal mass. No etiology for the patient's symptoms. Reviewed, dictated and finalized at location A.
--- NOTE | ~2021-04-04 | CT_ITS ---
EXAMINATION: CTA chest DATE: 04/06/2021 13:48 INDICATION: Dilated ascending aorta TECHNIQUE: Computed tomographic angiography (CTA) of the chest was performed with 100 mL Omnipque-350 intravenous contrast. Maximum intensity projection 3D-reconstructions of the aorta and other arterie s were constructed by the technologist on a separate workstation. The dose-length product (DLP) was 8 34.94 mGy-cm. Automated exposure control and iterative reconstruction technique were employed. COMPARISON: None. FINDINGS: There is fusiform enlargement of the ascending aorta which measures 4.5 cm at the level of the main pulmonary artery. There is no dissection. There is a 7 mm nodule in the medial aspect of the right upper lobe on image 36. There is dependent atelectasis. No pleural effusion or pneumothorax is identified. Nodules of the right thyroid lobe measure up to 11 mm. No pathologically enlarged thorac ic lymph nodes are identified. The heart size is normal. There is severe thoracic spondylosis. IMPRESSION: 1. Fusiform enlargement of the ascending aorta measuring 4.5 cm without dissection. 2. Indeterminate 7 mm nodule of the right upper lobe, possibly old granulomatous disease. If the lashawn ent has no risk factors for malignancy, no further follow up is required. If there are risk factors for malignancy (i.e., history of smoking, asbestos or radiation exposure), consider followup CT in 12 months. 3. Right thyroid nodules, consider thyroid ultrasound for risk stratification. Reviewed, dictated and finalized at location A. IMPRESSION: 1. Fusiform enlargement of the ascending aorta measuring 4.5 cm without dissect ion. 2. Indeterminate 7 mm nodule of the right upper lobe, possibly old granulomatou s disease. If the patient has no risk factors for malignancy, no further follow up is required. If there are risk factors for malignancy (i.e., history of sm oking, asbestos or radiation exposure), consider followup CT in 12 months. 3. Right thyroid nodules, consider thyroid ultrasound for risk stratification.
--- NOTE | ~2021-04-04 | CT_ITS ---
EXAMINATION: CT brain wo con DATE: 04/04/2021 16:16 INDICATION: Vertigo. TECHNIQUE: Computed tomography (CT) of the head was performed without intravenous contrast. The mA wa s adjusted according to patient size. Iterative reconstruction technique was employed. The dose-lengt h product was 756.67 mGy-cm. COMPARISON: Head CT 02/24/2020 FINDINGS: There is no intracranial hemorrhage, acute infarction, or abnormal intracranial mass lesion . The ventricles are normal in size. There is mild mucosal thickening in the paranasal sinuses. The m astoid air cells are normal. The orbits are normal. IMPRESSION: 1. Normal brain. Reviewed, dictated and finalized at location A. IMPRESSION: 1. Normal brain.
--- NOTE | ~2021-04-04 | US_ITS ---
EXAMINATION: US carotid duplex BI DATE: 04/05/2021 08:55 INDICATION: Vertigo. Generalized weakness. TECHNIQUE: Grayscale, color Doppler, and pulsed Doppler images of the cervical carotid arteries were obtained. The degree of vessel stenosis is placed in one of the following categories: normal, <50%, 5 0-69%, >=70% but less than near-occlusion, near-occlusion, or total occlusion. Note that percent sten osis relative to normal distal artery lumen diameter is indirectly measured from velocity measurement s as described by Jame, et al. Radiology 2003; 229:340-346. COMPARISON: None. FINDINGS: RIGHT: The right common carotid artery (CCA) peak systolic velocity (PSV) is 66 cm/s. The right internal car otid artery (ICA) PSV is 51 cm/s. The right ICA end-diastolic velocity (EDV) is 20 cm/s. The right IC A/CCA PSV ratio is 0.8. Grayscale and color Doppler images yield an estimate of <50% diameter reducti on from plaque in the ICA. The external carotid artery (ECA) PSV is 84 cm/s. There is antegrade flow in the right vertebral artery. LEFT: The left CCA PSV is 74 cm/s. The left ICA PSV is 84 cm/s. The left ICA EDV is 21 cm/s. The left ICA/C CA PSV ratio is 1.1. Grayscale and color Doppler images yield an estimate of <50% diameter reduction from plaque in the ICA. The ECA PSV is 67 cm/s. There is antegrade flow in the left vertebral artery. IMPRESSION: 1. <50% stenosis in the right internal carotid artery. 2. <50% stenosis in the left internal carotid artery. Reviewed, dictated and finalized at location A.
--- NOTE | ~2021-04-04 | MR_ITS ---
EXAMINATION: MR brain/brain stem wo/w con DATE: 04/05/2021 08:15 INDICATION: Vertigo and dizziness. TECHNIQUE: Magnetic resonance imaging (MRI) of the brain and brainstem was performed without and with 18 mL Multihance intravenous contrast. Sequences included sagittal and axial T1-weighted SE, axial d iffusion-weighted FS SE, axial T2*-weighted GRE, axial T2-weighted FLAIR, and axial T2-weighted FSE. Postcontrast axial and coronal T1-weighted SE was obtained. Apparent diffusion coefficient (ADC) maps were created. COMPARISON: Head CT dated 04/04/2021 FINDINGS: There are no areas of restricted diffusion to suggest acute infarction. No intracranial hemorrhage or abnormal intracranial mass lesion. There are a few small scattered foci of nonspecific increased T2- weighted signal intensity in the cerebral white matter, predominantly involving the deep and perivent ricular white matter which is well within normal limits for age. There are no intraparenchymal signal abnormalities seen on the other pulse sequences. The ventricles are symmetric and normal in size. Th ere are no abnormal extra-axial fluid collections. Flow voids are seen in the cerebral arteries on th e T2-weighted sequences consistent with their expected patency. The left vertebral artery is dominant . Mild mucosal thickening in the bilateral ethmoid and maxillary sinuses with small mucous retention cyst in the left maxillary sinus. Visualized orbits and soft tissues are unremarkable. There are no a reas of abnormal enhancement on the post contrast images. IMPRESSION: 1. Normal for age brain. Reviewed, dictated and finalized at location A. IMPRESSION: 1. Normal for age brain.
--- NOTE | ~2021-04-04 | US_ITS ---
US thyroid INDICATION: Right thyroid nodules TECHNIQUE: Real-time sonographic images of the thyroid gland were obtained. COMPARISON: CT dated 04/06/2021 FINDINGS: The right thyroid lobe measures 5.5 x 3 x 2.1 cm. The left thyroid lobe measures 4.1 x 1.7 x 2.1 cm. Thyroid echotexture is heterogeneous. There are multiple masses in the right with the ariane nant right thyroid mass measuring 2 x 1.8 x 1.6 cm being solid, hyperechoic, wider than tall, irregul ar margins without calcifications, TR 4. Normal vascular flow is present. IMPRESSION: 1. Right thyroid mass measuring 2 cm, TR 4. Ultrasound-guided fine-needle aspiration biopsy recommen ded. Reviewed, dictated and finalized at location B. IMPRESSION: 1. Right thyroid mass measuring 2 cm, TR 4. Ultrasound-guided fine-needle aspi ration biopsy recommended.
--- NOTE | 2021-04-04 14:08 | ECG_ITS ---
Measurements Intervals [place] Rate: 59 P: -23 ND: 111 QRS: 58 QRSD: 86 T: 55 QT: 458 QTc: 456 Interpretive Statements SINUS BRADYCARDIA WITH SHORT ND INTERVAL BASELINE ARTIFACT- II, III, AVF, V3-V6 BORDERLINE ECG Electronically Signed On 04-04-2021 14:26:31 CDT by Jackson Marcelo D.O.
[2021-04-04 14:24] LABS: Basophils Percent Auto 0.2 % (0.2-1.2); Eosinophils Percent Auto 0.4 % (0-4.4); Hematocrit 44.8 % (42.0-52.0); Immature Granulocyte Absolute 0.04 K/mm3 (0.00-0.031); Immature Granulocyte Percent A 0.4 % (0-0.5); Lymphocytes Absolute Auto 1.95 K/mm3 (0.9-3.2); Lymphocytes Percent Auto 17.3 % (18.3-44.2); Mean Corpuscular HGB Conc 33.5 g/dl (32-36); Mean Corpuscular Hemoglobin 31.7 pg (26-34); Mean Corpuscular Volume 94.7 fl (80-100); Mean Platelet Volume 9.8 fl (7.4-10.4); Monocytes Absolute Auto 0.6 K/mm3 (0.1-0.6); Monocytes Percent Auto 5.6 % (2.6-8.5); Neutrophils Absolute Auto 8.6 K/mm3 (1.3-6.7); Neutrophils Percent Auto 76.1 % (45.5-73.1); Platelet Count Result 259 k/mm3 (150-375); Red Blood Count 4.73 M/mm3 (4.6-6.20); Red Cell Distribution Width 11.7 % (11.5-14.5); White Blood Count 11.3 K/mm3 (4.5-10.0)
[2021-04-04 14:34] LABS: Anion Gap 11 mmol/L (8-16); Blood Urea Nitrogen 16 mg/dL (9-20); Calcium 10.1 mg/dL (8.4-10.2); Carbon Dioxide 22 mmol/L (22-30); Chloride 107 mmol/L (98-107); Estimated CRCL calculation 102 ml/min; Estimated Glomerular Filt Rate > 60; Glucose 174 mg/dL (75-110); Sodium 140 mmol/L (137-145)
--- NOTE | 2021-04-04 15:42 | ED.WEAKNESS ---
HPI - Weakness General Chief complaint: Weakness Stated complaint: Weakness, DIzzy Time Seen by Provider: 04/04/21 15:22 History of Present Illness HPI Narrative: 60 yo male presents to the ED form home for dizziness. He reports that he has had severe dizziness since last night. Feels like spinning. Worse with eyes open, head movement. It is associated with nausea, vomiting, and generalized weakness. He has never had this before. Related Data Home Medications Medication Instructions Recorded Confirmed atorvastatin 20 mg tablet 20 mg PO DAILY 03/02/20 carisoprodol 350 mg tablet 350 mg PO .hs PRN tablet 03/02/20 levothyroxine 75 mcg capsule 75 mcg PO DAILY 03/02/20 omeprazole 20 mg capsule,delayed 20 mg PO DAILY 03/02/20 release pregabalin 75 mg capsule 75 mg PO BID 03/02/20 Allergies Allergy/AdvReac Type Severity Reaction Status Date / Time codeine Allergy Unknown Other Verified 04/04/21 14:09 lorazepam [From Ativan] AdvReac Severe Other Verified 04/04/21 14:09 Review of Systems Review of Systems: All systems reviewed & are unremarkable except as noted in HPI and below Constitutional: Constitutional: Denies chills, Denies fever(s) and Reports weakness Eyes: Eyes: Reports as per HPI ENT: Reports vertigo and Denies sore throat Cardiovascular: Cardiovascular: Denies chest pain Respiratory: Respiratory: Denies dyspnea Gastrointestinal: Gastrointestinal: Denies abdominal pain, Denies diarrhea, Reports nausea and Reports vomiting Genitourinary: Genitourinary: Reports no additional male genitourinary complaints Musculoskeletal: Musculoskeletal: Denies back pain Neurologic: Denies syncope, Denies headache(s) and Reports weakness [facility] Past Medical History Medical History (Updated 04/04/21 @ 16:30 by Jame Ambrosio MD) Hernia Surgical History Surgical History History of left hip replacement History of right hip replacement 2017 Family History Family History Grandparent Family history of condition Mother Family history of malignant neoplasm of breast in first degree relative Father Family history of lung disease Family history of Alzheimer's disease Sibling Family history of rheumatoid arthritis Social History Social History Smoking status: Never smoker Alcohol intake: former Substance use: current Substance use type: marijuana Gender identity (if verbalized by the patient): Male Spiritual care concerns: No Exam Const: General: healthy appearing, no acute distress and alert Orientation/consciousness: patient oriented x3 HENMT: Head: normal to inspection Ears: TM's normal bilaterally and EAC's normal Eyes: Conjunctivae: conjunctivae normal Pupils: Equal, round and reactive pupils present Neck: Neck: normal visual inspection and no lymphadenopathy Resp: Effort & Inspection: normal respiratory effort Auscultation: clear to auscultation bilaterally, no rales, no rhonchi and no wheezes Cardio: Jugular venous distension: no JVD Rate: regular rate Rhythm: regular rhythm Heart sounds: no murmurs GI: Inspection: non-distended GI Palp: Yes Soft to palpation and No Tenderness to palpation present (GI) Skin: General skin exam: normal color Neuro: General: patient oriented x3, moves all extremities, no focal motor deficits and CN's II-XI intact bilaterally Cranial nerves: Yes Nystagmus present horizontal Speech: normal speech Extrem: General: normal to inspection and no edema Psych: Appearance: grossly normal and well kempt Mental Status: mental status grossly normal Affect: normal affect Course Vital Signs Vital signs: Vital Signs Temperature 36.2 C L 04/04/21 14:03 Pulse Rate 59 L 04/04/21 14:03 Respiratory Rate 14 04/04/21 14:03 Blood Pressure 148/92 H 04/04/21 14:03 P
[2021-04-04] MEDS: diazePAM INJ (*CRX) 10 MG/2 ML SYRINGE 5 MG IV PUSH (15:59)
[2021-04-04] MEDS: SODIUM CHLORIDE 0.9% IV 1,000 ML 999 ML IV CONT (15:59)
[2021-04-04] MEDS: ONDANSETRON INJ 4 MG/2 ML VIAL IV PUSH ×2 (18:40→23:47)
[2021-04-04 21:39] LABS: Glucose Point of Care 111 mg/dl (65-105)
--- NOTE | 2021-04-04 22:22 | PC.NURSE ---
This patient, Osito Garcia, was admitted to Medical Room 246-01. Patient/family oriented to hospital policies and general routines including ID bracelet, bed and alarms, visiting hours, pain management, procedures, bathroom and other care routines, personal items, smoking policy, room service/diet, and visiting hours. Information on how to activate the Rapid Response Team has been discussed. Patient/Family are encouraged to report perceived risks to care and to ask questions if they do not understand what they are told or what they should do.
--- NOTE | 2021-04-04 23:58 | PM.IMHP ---
H&P: HPI History of Present Illness Date/Time: 04/04/21 23:58 this is a 60-year-old male patient who has a past medical history of a diabetes and hyperlipidemia. The patient stated that all of a sudden 3:00 a.m. on Sunday afternoon the patient was cooking and felt very dizzy and fell on the floor and laid there for several hours. The patient stated if he laid still he would feel any dizziness. Any time he moved his head her set up he would feel dizzy and vomit. The patient stated he really has not eaten anything since Sunday. The patient stated that he has never had this before. He has not had any head injury. He denies hitting his head or losing consciousness. The patient stated he felt dizzy and fell on the floor. normal brain. The patient was given IV fluids and Valium in the emergency room. He was also given Zofran in the emergency room. The patient continues to feel nauseated and dizzy. Anti returns is head. Laying still is what helps him out the most. However the patient has been laying around for several days and states that he needs his finger was going on. The patient is being admitted to observation on the date of service 04/04/2021. Chief Complaint: Dizziness Review of Systems Review of Systems: All systems reviewed & are unremarkable except as noted in HPI and below Constitutional: Constitutional: Reports as per HPI and Reports no additional constitutional complaints Eyes: Eyes: Reports as per HPI and Reports no additional eye complaints ENT: Reports system reviewed and no additional complaints, except as documented and Reports Normal hearing present Cardiovascular: Cardiovascular: Reports no additional cardiovascular complaints Respiratory: Respiratory: Reports no additional respiratory complaints and Reports no additional respiratory complaints Gastrointestinal: Gastrointestinal: Reports as per HPI and Reports no additional gastrointestinal complaints Musculoskeletal: Musculoskeletal: Reports no additional musculoskeletal complaints Integumentary/Breasts: Skin/Breast: Reports system reviewed and no additional complaints, except as docu and Reports as per HPI Neurologic: Reports system reviewed and no additional complaints, except as documented, Reports as per HPI and Reports Normal hearing present Psychiatric: Psychiatric: Reports no additional psychiatric complaints and Reports as per HPI Endocrine: Endocrine: Reports no additional endocrine complaints Hematologic/Lymphatic: Hematologic/Lymphatic: Reports no additional hematologic/lymphatic complaints Allergic/Immunologic: Allergic/Immunologic: Reports no additional allergic/immunologic complaints [facility] Past Medical History Medical History (Updated 04/05/21 @ 00:05 by Naya Garcia NP) CHF (congestive heart failure) Diabetes Hernia Hyperlipidemia Surgical History Surgical History (Updated 04/05/21 @ 00:05 by Naya Garcia NP) History of right hip replacement 2017 Family History Family History Grandparent Family history of condition Mother Family history of malignant neoplasm of breast in first degree relative Father Family history of lung disease Family history of Alzheimer's disease Sibling Family history of rheumatoid arthritis Social History Social History (Updated 04/05/21 @ 00:06 by Naya Garcia NP) Social History: The patient worked for [employer] and works at 1 time. He lives with his and daughter in their family. The patient is a full code and desires to have his is the durable power staff attorney for healthcare. The patient is a lifelong nonsmoker. He denies any marijuana alcohol or illicit drug use. Smoking status: Never smoker Alcohol intake: never Substance use: current Substance use type: marijuana Gender identity (if verbalized by the patient): Male Spiritual care concerns: No Meds Home Medications and Allergies Home Med
--- NOTE | 2021-04-05 | ECHO_ITS ---
Patient Info Name: Osito Garcia Age: 60 years : 1960 Gender: Male Ht: 68 in Wt: 202 lbs BSA: 2.12 m2 HR: 53 bpm BP: 149 / 79 mmHg Heart Rhythm: Sinus Rhythm Technical Quality: Good Exam Date: 04/05/2021 11:34 AM Exam Location: [facility] Patient Status: Outpatient Admit Date: 04/04/2021 Staff Ordering Physician: Naya Garcia NP Cap Coverer: Abrahan Santo RDCS, RT Attending Provider: Shilpi Mueller PA-C Referring Physician: Jose IRVING; Exam Type: CA echo doppler color flow Study Info Indications I50.9 - Heart failure, unspecified Complete two-dimensional, color flow and Doppler transthoracic echocardiogram is performed. Strain analysis performed. Summary 1. Complete two-dimensional, color flow and Doppler transthoracic echocardiogram is performed. 2. Strain analysis performed. 3. Left ventricular systolic function is normal, estimated at 65-70%. 4. Left ventricular chamber dimension is normal. 5. There is moderately increased left ventricular wall thickness. 6. The left ventricular diastolic function is grade I diastolic dysfunction. 7. Global longitudinal strain is borderline at -16 %. 8. Right ventricular chamber dimension is mildly enlarged. 9. Left atrial chamber dimension is mildly enlarged. 10. There is moderate aortic valve regurgitation. 11. There is mild mitral valve regurgitation. 12. There is mild tricuspid valve regurgitation. 13. There is mild pulmonic regurgitation. 14. The aortic root size at the sinus of Valsalva is mildly dilated. 15. The prox ascending aorta size is moderately dilated. Left Ventricle Left ventricular chamber dimension is normal. Left ventricular systolic function is normal, estimated at 65-70%. There is moderately increased left ventricular wall thickness. The left ventricular diastolic function is grade I diastolic dysfunction. Global longitudinal strain is borderline at -16 %. Right Ventricle Right ventricular chamber dimension is mildly enlarged. Right ventricular systolic function is normal. Left Atria Left atrial chamber dimension is mildly enlarged. Right Atria Right atrial chamber dimension is normal. Atrial Septum Intact interatrial septum visualized by color flow imaging. Aortic Valve The aortic valve is trileaflet. There is mild aortic valve sclerosis. There is no aortic valve stenosis. There is moderate aortic valve regurgitation. Pulmonic Valve The pulmonic valve is normal. There is no pulmonic valve stenosis. There is mild pulmonic regurgitation. Mitral Valve The mitral valve has normal leaflets. There is no mitral valve stenosis. There is mild mitral valve regurgitation. Tricuspid Valve The tricuspid valve leaflets are normal. There is no significant tricuspid valve stenosis. There is mild tricuspid valve regurgitation. Pericardium/Pleural The pericardium appears normal. There is no pericardial effusion. Inferior Vena Cava Normal inferior vena cava with >50% collapse upon inspiration consistent with normal right atrial pressure, 5 mmHg. Aorta The aortic root size at the sinus of Valsalva is mildly dilated. The prox ascending aorta size is moderately dilated. Left Ventricular Outflow Tract Name Value Normal LVOT 2D
[2021-04-05] MEDS: SODIUM CHLORIDE 0.9% IV 1,000 ML 100 ML IV CONT (00:21)
[2021-04-05 05:38] LABS: Basophils Percent Auto 0.3 % (0.2-1.2); Eosinophils Absolute Auto 0.1 K/mm3 (0-0.3); Eosinophils Percent Auto 0.7 % (0-4.4); Hematocrit 41.9 % (42.0-52.0); Hemoglobin 13.8 g/dL (14.0-18.0); Immature Granulocyte Absolute 0.04 K/mm3 (0.00-0.031); Immature Granulocyte Percent A 0.3 % (0-0.5); Lymphocytes Absolute Auto 3.04 K/mm3 (0.9-3.2); Lymphocytes Percent Auto 26.4 % (18.3-44.2); Mean Corpuscular HGB Conc 32.9 g/dl (32-36); Mean Corpuscular Hemoglobin 31.8 pg (26-34); Mean Corpuscular Volume 96.5 fl (80-100); Mean Platelet Volume 9.8 fl (7.4-10.4); Monocytes Absolute Auto 0.8 K/mm3 (0.1-0.6); Monocytes Percent Auto 7.2 % (2.6-8.5); Neutrophils Absolute Auto 7.5 K/mm3 (1.3-6.7); Neutrophils Percent Auto 65.1 % (45.5-73.1); Platelet Count Result 221 k/mm3 (150-375); Red Blood Count 4.34 M/mm3 (4.6-6.20); Red Cell Distribution Width 11.9 % (11.5-14.5); White Blood Count 11.5 K/mm3 (4.5-10.0)
[2021-04-05 05:59] LABS: Alanine Aminotransferase 21 U/L (4-50); Albumin Level 3.9 g/dL (3.5-5.1); Alkaline Phosphatase 45 U/L (38-126); Anion Gap 8 mmol/L (8-16); Aspartate Amino Transferase 23 U/L (17-59); Bilirubin,Total 0.3 mg/dL (0.2-1.3); Blood Urea Nitrogen 15 mg/dL (9-20); Calcium 9.1 mg/dL (8.4-10.2); Carbon Dioxide 24 mmol/L (22-30); Chloride 111 mmol/L (98-107); Estimated CRCL calculation 93 ml/min; Estimated Glomerular Filt Rate > 60; Glucose 107 mg/dL (75-110); Lactic Acid Reflex 0.8 mmol/L (0.7-2.1); Lipase 550 U/L (23-300); Magnesium 1.8 mg/dL (1.6-2.3); Potassium 3.8 mmol/L (3.4-5.0); Sodium 143 mmol/L (137-145)
[2021-04-05 06:00] VITALS: BP 113/72; PULSE 61; RESP 20; TEMP 36.3; O2SAT 98
[2021-04-05 08:52] VITALS: O2SAT 98
[2021-04-05] MEDS: MECLIZINE HCL 12.5 MG TABLET PO (08:52)
[2021-04-05 08:56] LABS: Free T4 Free Thyroxine Reflex 0.55 ng/dL (0.78-2.19)
[2021-04-05 09:18] LABS: Glucose Point of Care 113 mg/dl (65-105)
--- NOTE | 2021-04-05 11:01 | PM.IMPN ---
Progress Note: A&P Assessment and Plan (1) Vertigo: Code(s): R42 - Dizziness and giddiness Status: Acute Assessment and Plan: Patient denies any history of dizziness in the past. This began on 04/03 at 3:00 p.m. while he was cooking dinner. The patient suddenly became dizzy, then lowered himself to the ground where he laid for about 8 hours. He was not able to get into his bed where he continued to lay until he decided to call 911. He came to the emergency room on 04/04 afternoon with continued dizziness with associated nausea, vomiting and unable hold food down. He was afebrile, bradycardic at 59 beats per minute, elevated blood pressure 148/92, normal oxygenation respiratory rate on arrival. Initial labs showed leukocytosis at 11,300, with slightly elevated neutrophils at 76%. Normal BMP other than elevated glucose at 174. CT head showed normal brain. He was admitted into the hospital with dizziness for further evaluation, IV fluid hydration, meclizine. Ordered an MRI of his brain to rule out any acute stroke Carotid ultrasounds have been ordered to rule out any carotid stenosis Echocardiogram ordered to rule out any heart abnormality The patient continues to complain of some dizziness, and nausea. He has not had any more episodes of vomiting. Will continue IV fluids, advance diet as tolerated. Continued scheduled meclizine q.i.d. and p.r.n. Zofran. Continue monitoring. (2) CHF (congestive heart failure): Qualifiers: Heart failure chronicity: unspecified Heart failure type: unspecified Qualified Code(s): I50.9 - Heart failure, unspecified Code(s): I50.9 - Heart failure, unspecified Status: Chronic Assessment and Plan: This was listed in the patient's history but does not look like he is taking any medications for this so I ordered an echo. Pending echo results (3) Hyperlipidemia: Code(s): E78.5 - Hyperlipidemia, unspecified Status: Chronic Assessment and Plan: I am going to hold his rosuvastatin at this time until he is eating better. (4) Diabetes: Code(s): E11.9 - Type 2 diabetes mellitus without complications Status: Chronic Assessment and Plan: Since the patient is having nausea and vomiting. Will hold the patient's insulin, Continue a diabetic diet. Accu-Cheks AC and HS. Continue sliding scale insulin. Hypoglycemic protocol in place. Time Spent With Patient Time with patient: 25 - 35 minutes Subjective Date/time seen: 04/05/21 11:01 Interval history: Date of service 04/05/2021: Patient reports some improvement of his dizziness since arriving to the hospital. States his dizziness is worse when he looks to the left. He still having nausea, loss of appetite. He has not vomited wall being admitted. He does report a slight headache, but states this is not uncommon for him. He denies any vision changes, fevers, chills, chest pain, shortness of breath, palpitations, cough, abdominal pain, leg swelling, calf pain, numbness, tingling, urinary incontinence, bowel incontinence, back pain, syncope, or any other symptoms at this time. Review of Systems Review of Systems: All systems reviewed & are unremarkable except as noted in HPI and below Exam Narrative: Exam Narrative: General: 60-year-old man laying flat in bed on his left side, then moves to his back and appears comfortable. In no acute distress. Skin: No jaundice or cyanosis. Good skin turgor. Neck: Full range of motion. Supple. Respiratory: Lungs are clear to auscultation bilaterally. No wheezing, rales or rhonchi. No bony chest wall tenderness. Cardiovascular: The heart has a regular rate and rhythm without murmur. Lower extremities: No lower extremity edema. Distal pulses
[2021-04-05] MEDS: MECLIZINE HCL 25 MG TABLET PO ×3 (12:34→21:28)
[2021-04-05] MEDS: SODIUM CHLORIDE 0.9% IV 1,000 ML 50 ML IV CONT (12:36)
[2021-04-05 13:05] LABS: Glucose Point of Care 117 mg/dl (65-105)
[2021-04-05 14:00] VITALS: BP 133/72; PULSE 54; RESP 18; TEMP 36.2; O2SAT 97
[2021-04-05 17:54] LABS: Glucose Point of Care 87 mg/dl (65-105)
[2021-04-05 21:27] VITALS: BP 142/86; PULSE 55; RESP 16; TEMP 36.5; O2SAT 96
[2021-04-05 22:07] LABS: Glucose Point of Care 106 mg/dl (65-105)
[2021-04-06 05:37] LABS: Hematocrit 44.9 % (42.0-52.0); Hemoglobin 14.8 g/dL (14.0-18.0); Mean Corpuscular Hemoglobin 31.6 pg (26-34); Mean Corpuscular Volume 95.9 fl (80-100); Mean Platelet Volume 9.6 fl (7.4-10.4); Platelet Count Result 241 k/mm3 (150-375); Red Blood Count 4.68 M/mm3 (4.6-6.20); Red Cell Distribution Width 11.9 % (11.5-14.5); White Blood Count 10.3 K/mm3 (4.5-10.0)
[2021-04-06 05:52] LABS: Anion Gap 13 mmol/L (8-16); Blood Urea Nitrogen 16 mg/dL (9-20); Calcium 9.4 mg/dL (8.4-10.2); Carbon Dioxide 28 mmol/L (22-30); Chloride 107 mmol/L (98-107); Estimated CRCL calculation 75 ml/min; Estimated Glomerular Filt Rate > 60; Glucose 102 mg/dL (75-110); Lipase 117 U/L (23-300); Sodium 148 mmol/L (137-145)
[2021-04-06 05:53] VITALS: BP 135/88; PULSE 52; RESP 16; TEMP 36.7; O2SAT 95
[2021-04-06 07:28] LABS: Glucose Point of Care 110 mg/dl (65-105)
[2021-04-06] MEDS: MECLIZINE HCL 25 MG TABLET PO ×4 (08:15→21:11)
--- NOTE | 2021-04-06 10:01 | PM.IMPN ---
Progress Note: A&P Assessment and Plan (1) Vertigo: Code(s): R42 - Dizziness and giddiness Status: Acute Assessment and Plan: Patient denies any history of dizziness in the past. This began on 04/03 at 3:00 p.m. while he was cooking dinner. The patient suddenly became dizzy, then lowered himself to the ground where he laid for about 8 hours. He was not able to get into his bed where he continued to lay until he decided to call 911. He came to the emergency room on 04/04 afternoon with continued dizziness with associated nausea, vomiting and unable hold food down. He was afebrile, bradycardic at 59 beats per minute, elevated blood pressure 148/92, normal oxygenation respiratory rate on arrival. Initial labs showed leukocytosis at 11,300, with slightly elevated neutrophils at 76%. Normal BMP other than elevated glucose at 174. CT head showed normal brain. He was admitted into the hospital with dizziness for further evaluation, IV fluid hydration, meclizine. MRI of his brain w/wo contrast showed normal for age brain Carotid ultrasounds showed less than 50% stenosis Echocardiogram ordered showing Left ventricular systolic function is normal, estimated at 65-70%. Left ventricular chamber dimension is normal. There is moderately increased left ventricular wall thickness. The left ventricular diastolic function is grade I diastolic dysfunction. There is moderate aortic valve regurgitation. The aortic root size at the sinus of Valsalva is mildly dilated. The prox ascending aorta size is moderately dilated. The patient continues to complain of some dizziness today, feeling off balance, unable to get around. D/c IV fluids, advance diet as tolerated. Continued scheduled meclizine q.i.d. Will order PT/OT for evaluation. Continue monitoring. 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 The prox ascending aorta size is moderately dilated. Will further evaluate with CTA Chest to evaluate the Aorta for further issues. The patient states he had not seen a doctor in 35 years prior to 1 year ago. He has only followed up with PCP via Zoom but he does have an appointment 04/13/21 with PCP. Continue monitoring. (3) CHF (congestive heart failure): Qualifiers: Heart failure chronicity: unspecified Heart failure type: unspecified Qualified Code(s): I50.9 - Heart failure, unspecified Code(s): I50.9 - Heart failure, unspecified Status: Chronic Assessment and Plan: Echo showing diastolic dysfunction. Euvolemic at this time. (4) Hyperlipidemia: Code(s): E78.5 - Hyperlipidemia, unspecified Status: Chronic Assessment and Plan: I am going to hold his rosuvastatin at this time until he is eating better. (5) Diabetes: Code(s): E11.9 - Type 2 diabetes mellitus without complications Status: Chronic Assessment and Plan: Since the patient is having nausea and vomiting. Will hold the patient's insulin, Continue a diabetic diet. Accu-Cheks AC and HS. Continue sliding scale insulin. Hypoglycemic protocol in place. Time Spent With Patient Time with patient: 25 - 35 minutes Subjective Date/time seen: 04/06/21 10:01 Interval history: Date of service 04/06/2021: Patient reports some improvement of his dizziness since arriving to the hospital, but he still having symptoms. He still does not think he could walk around in his room without holding on to something. He does not believe he would be able to go home because of his dizziness and take care of himself. He is eati
[2021-04-06] MEDS: ACETAMINOPHEN 325 MG TABLET 650 MG PO (10:07)
[2021-04-06 11:48] LABS: Glucose Point of Care 105 mg/dl (65-105)
[2021-04-06] MEDS: LACTATED RINGERS 1,000 ML 70 ML IV CONT (12:16)
[2021-04-06 14:20] VITALS: BP 140/86; PULSE 59; RESP 18; TEMP 35.8; O2SAT 99
[2021-04-06 17:30] LABS: Glucose Point of Care 87 mg/dl (65-105)
[2021-04-06 22:00] VITALS: BP 154/90; PULSE 62; RESP 21; TEMP 35.8; O2SAT 100
[2021-04-06 22:21] LABS: Glucose Point of Care 95 mg/dl (65-105)
[2021-04-07] MEDS: LACTATED RINGERS 1,000 ML 70 ML IV CONT (05:00)
[2021-04-07 05:51] LABS: Anion Gap 5 mmol/L (8-16); Blood Urea Nitrogen 21 mg/dL (9-20); Calcium 9.1 mg/dL (8.4-10.2); Carbon Dioxide 27 mmol/L (22-30); Chloride 108 mmol/L (98-107); Estimated CRCL calculation 93 ml/min; Estimated Glomerular Filt Rate > 60; Glucose 99 mg/dL (75-110); Potassium 3.7 mmol/L (3.4-5.0); Sodium 140 mmol/L (137-145)
[2021-04-07 06:00] VITALS: BP 150/93; PULSE 58; RESP 18; TEMP 36.1; O2SAT 96
[2021-04-07] MEDS: LEVOTHYROXINE SODIUM 50 MCG TABLET PO (06:34)
[2021-04-07] MEDS: MECLIZINE HCL 25 MG TABLET PO ×2 (07:59→13:58)
[2021-04-07 08:35] LABS: Glucose Point of Care 117 mg/dl (65-105)
--- NOTE | 2021-04-07 09:31 | PCPTNOTE ---
Attempted PT eval this a.m. - as beginning eval - needed to go to radiology for ultrasound. Will try again later.
[2021-04-07] MEDS: lisinopriL 2.5 MG TABLET PO (10:03)
[2021-04-07 12:16] LABS: Glucose Point of Care 128 mg/dl (65-105)
[2021-04-07 14:00] VITALS: BP 143/92; PULSE 64; RESP 18; TEMP 35.7; O2SAT 96
--- NOTE | 2021-04-07 14:29 | PM.DS ---
DS: Admitting Diagnosis Admitting Diagnosis Admitting Diagnosis: Dizziness DS: Discharge Diagnosis Discharge Diagnosis (1) Vertigo: Code(s): R42 - Dizziness and giddiness Status: Acute Assessment and Plan: Patient is a 60-year-old man with a history of diabetes on insulin, dyslipidemia, who presented to the emergency room with sudden dizziness which began on 04/03 at 3:00 p.m. while he was cooking dinner. Patient denies any history of dizziness in the past. The patient suddenly became dizzy, then lowered himself to the ground where he laid for about 8 hours. He was not able to get into his bed where he continued to lay until he decided to call 911. He came to the emergency room on 04/04 afternoon with continued dizziness with associated nausea, vomiting and unable hold food down. He was afebrile, bradycardic at 59 beats per minute, elevated blood pressure 148/92, normal oxygenation respiratory rate on arrival. Initial labs showed leukocytosis at 11,300, with slightly elevated neutrophils at 76%. Normal BMP other than elevated glucose at 174. CT head showed normal brain. He was admitted into the hospital with dizziness for further evaluation, IV fluid hydration, meclizine. MRI of his brain w/wo contrast and MRI IAC showed normal for age brain without any acute issues Carotid ultrasounds showed less than 50% stenosis Echocardiogram ordered showing Left ventricular systolic function is normal, estimated at 65-70%. Left ventricular chamber dimension is normal. There is moderately increased left ventricular wall thickness. The left ventricular diastolic function is grade I diastolic dysfunction. There is moderate aortic valve regurgitation. The aortic root size at the sinus of Valsalva is mildly dilated. The prox ascending aorta size is moderately dilated. The patient reports much improvement of his dizziness today. Still slightly but he is able to get around without any issues. He does feel comfortable with going home at this time to continue taking meclizine as prescribed. He has an appointment next week with his primary care provider are ready scheduled. Patient was discharged in stable condition all questions answered. 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 The prox ascending aorta size is moderately dilated. CTA Chest (Aorta) showed Fusiform enlargement of the ascending aorta measuring 4.5 cm without dissection. The patient reports no family history aortic aneurysms, Marfan syndrome or Celsa-danlos syndrome sudden . The patient states he had not seen a doctor in 35 years prior to 1 year ago. He is unaware of any hypertension issues in his past and is not on any medications currently. He did quit smoking 3 months ago. Will have the patient follow-up with primary care provider with repeat imaging and monitoring. It is start him on lisinopril 2.5 mg to help better control his blood pressure due to moderate LVH and ascending aortic dilation. Told patient to check his blood pressure at home twice daily. (3) Thyroid nodule: Code(s): E04.1 - Nontoxic single thyroid nodule Status: Acute Assessment and Plan: Patient was found have right thyroid nodules on CT scan. Thyroid ultrasound was obtained showing right thyroid mass measuring 2 cm, TR 4. They recommended ultrasound-guided fine-needle aspiration biopsy which could not be done today. Since the patient was improved in otherwise stable condition I told him he needs to follow-up with primary care provider who he has an appointment with next week to schedule an outpatient thyroid biopsy. The patient understands and agrees the plan all questions answered.
--- NOTE | 2021-04-07 14:54 | PCPTNOTE ---
Attempted PT eval, pt being discharged.
== END 2021-04-07 16:30 | disposition home or self-care (01) ==
LOC: ANHED 17:24 → ANH2MED 18:53
PROVIDERS: Emergency Medicine; Nurse Practitioner; Physician Assistant; Admitting Provider Family Medicine; Emergency Provider Emergency Medicine; PCP Internal Medicine Infectious Disease; Visit Provider Emergency Medicine
DX: R42 Dizziness and giddiness (principal); I77.810 Thoracic aortic ectasia; E11.9 Type 2 diabetes mellitus without complications; E04.1 Nontoxic single thyroid nodule; E03.9 Hypothyroidism, unspecified; E78.5 Hyperlipidemia, unspecified; I50.9 Heart failure, unspecified; R91.1 Solitary pulmonary nodule; Z79.4 Long term (current) use of insulin; Z96.641 Presence of right artificial hip joint
CPT/HCPCS: 36415; 70450; 70553; 71275; 76536; 80048; 80053; 82948; 83605; 83690; 83735; 84439; 84443; 85025; 85027; 93005; 93306; 93880; 96360; 96361; 96374; 96375; 96376; 97165; 99285; A9270; A9577; G0378; G0379; J2405; J3360; J7030; J7120; Q9967

== ENCOUNTER 2023-11-10 08:06 | Emergency (ER) | payer BC, MEDICAID, SELFPAY ==
--- NOTE | ~2023-11-10 | XR_ITS ---
XR lumbar spine 2-3V 11/10/2023 08:48 Indication: Low back pain Procedure: 3 views lumbar spine Comparison: No prior studies for comparison. Findings: There is disc narrowing at L5-S1. There is facet hypertrophy at L5-S1. No fracture, subluxa tion or dislocation. No evidence for spondylolisthesis. There is atherosclerosis of the aorta. No acu te fracture or traumatic malalignment. Impression: 1: Mild lumbar spondylosis. Reviewed, dictated and finalized at location A. RAPHIC INFORMATION SYSTEM SURVEYOR Impression: 1: Mild lumbar spondylosis.
[2023-11-10 08:13] VITALS: BP 199/128; PULSE 72; RESP 16; TEMP 36.7; O2SAT 96
[2023-11-10] MEDS: KETOROLAC 30 MG/ML VIAL (*BKC) IM (08:37)
[2023-11-10] MEDS: diazePAM (*CRX) 5 MG TABLET PO (08:38)
--- NOTE | 2023-11-10 09:22 | ED.GENADULT ---
HPI - General Adult General Chief complaint: Unspecified Stated complaint: hip pain Time Seen by Provider: 11/10/23 08:10 History of Present Illness HPI narrative: Patient is a 63-year-old male who presents ER with left-sided back pain. He is going from sitting seen 1 week ago when he felt a sharp twinge left side of his back. This since started radiating down into his left leg. Worse with twisting walking. He has been taking 800 mg of ibuprofen regularly without improvement. No saddle anesthesia. No difficulty with urination / defecation. No lower extremity weakness. He has follow-up with his PCP in 6 weeks. Related Data Home Medications Medication Instructions Recorded Confirmed rosuvastatin 10 mg tablet 10 mg PO DAILY 04/04/21 04/04/21 Allergies Allergy/AdvReac Type Severity Reaction Status Date / Time codeine Allergy Unknown Other Verified 04/04/21 14:09 lorazepam [From Ativan] AdvReac Severe Other Verified 04/04/21 14:09 Review of Systems Constitutional: Constitutional: Reports no additional constitutional complaints ENT: Reports system reviewed and no additional complaints, except as documented Musculoskeletal: Musculoskeletal: Reports no additional musculoskeletal complaints and Reports back pain Neurologic: Reports system reviewed and no additional complaints, except as documented PMF Past Medical History Medical History (Updated 11/10/23 @ 10:20 by Michael Oneal MD) CHF (congestive heart failure) Diabetes Hernia Hyperlipidemia Surgical History Surgical History (Updated 04/05/21 @ 00:05 by Naya Garcia NP) History of right hip replacement 2017 Family History Family History Grandparent Family history of condition Mother Family history of malignant neoplasm of breast in first degree relative Father Family history of lung disease Family history of Alzheimer's disease Sibling Family history of rheumatoid arthritis Social History Social History (Updated 04/05/21 @ 00:06 by Naya Garcia NP) Social History: The patient worked for [employer] and works at 1 time. He lives with his and daughter in their family. The patient is a full code and desires to have his is the durable power senior attorney for healthcare. The patient is a lifelong nonsmoker. He denies any marijuana alcohol or illicit drug use. Smoking status: Never smoker Alcohol intake: never Substance use: current Substance use type: marijuana Living arrangements: with family Occupation/Education: occupation Gender identity (if verbalized by the patient): Male Spiritual care concerns: No Exam Narrative: GENERAL: Well-appearing, well-nourished, and in no acute distress. HEAD: Normocephalic, atraumatic. ENT: Mucous membranes moist. CHEST: Clear to auscultation. No respiratory distress. HEART: Regular rate and rhythm. Normal peripheral pulses. BACK: No midline tenderness at T/L-spine. There is left paraspinal muscle tenderness at L4-L5 region. EXTREMITIES: Normal range of motion. No edema. NEURO: Alert and oriented x3. PSYCH: Normal mood and affect. Course Course Emergency Course: Pain results with Valium and Toradol. Feels markedly improved. Discharge home with Medrol Dosepak and cyclobenzaprine. Vital Signs Vital signs: Vital Signs Temperature 98.0 F 11/10/23 08:13 Pulse Rate 72 11/10/23 08:13 Respiratory Rate 16 11/10/23 08:13 Blood Pressure 199/128 H 11/10/23 08:13 Pulse Oximetry 96 11/10/23 08:13 Temperature 98.0 F 11/10/23 08:13 Pulse Rate 72 11/10/23 08:13 Respiratory Rate 16 11/10/23 08:13 Blood Pressure 199/128 H 11/10/23 08:13 Pulse Oximetry 96 11/10/23 08:13 Medical Decision Making Vital Signs Vital Signs: Vital Signs Temperature 98.0 F 11/10/23 08:13 Pulse Rate 72 11/10/23 08:13 Respiratory Rate 16 11/10/23 08:13 Blood Pressure 199/128
[2023-11-10 10:55] VITALS: BP 172/99; PULSE 84; RESP 20; O2SAT 97
== END 2023-11-10 10:55 | disposition home or self-care (01) ==
PROVIDERS: Emergency Provider Emergency Medicine
DX: M54.42 Lumbago with sciatica, left side (principal); I50.9 Heart failure, unspecified; E11.9 Type 2 diabetes mellitus without complications; E78.5 Hyperlipidemia, unspecified; Z96.641 Presence of right artificial hip joint; M47.816 Spondylosis without myelopathy or radiculopathy, lumbar region
CPT/HCPCS: 72100; 96372; 99283; A9270; J1885